=== PATIENT | female | born 1990 | race Caucasian/White ===

== ENCOUNTER 2016-11-22 13:29 | Emergency (ER) | payer OTHER ==
[~2016-11-22] VITALS: Ht 170.2 cm; Wt 70.0 kg
[~2016-11-22 13:29] MED LIST: AMOXICILLIN500 MG PO; AMOXICILLIN875 MG OR; ATIVAN0.5 MG PO; BACTRIM DS1 TAB PO; BENADRY2 EX; BENADRYL 50MG C50 MG PO; CEPHALEXIN500 MG PO; CIPRO XR500 M1 OR; CIPRO500 MG OR; CIPRO500 MG PO; CIPROFLOXACN500 MG PO; CLEOCIN VAG2 % VA; CLEOCIN300 MG OR; DENIES CURRENT MEDS; DIFLUCAN150 MG PO; DILAUDID 2MG2 MG/TAB PO; DILAUDID2 MG PO; DOXYCYCL HYC100 M3 PO; FLAGYL500 MG OR; FLEXERIL PO; FLUCONAZOLE200 MG PO; KEFLEX500 MG PO; LEVAQUIN750 MG PO; LORTAB 10-325 M1 TAB PO; LORTAB 5 OR; LORTAB5 PO; MACROBID100 MG OR; NAPROSYN500 MG OR; NAPROSYN500 MG PO; NO; NO HOME MEDS; NORCO1 TA1 PO; ONDANSETRON4 MG PO; PENICILLN VK500 MG OR; PHENERGAN25 MG/TAB PO; PREVACID30 M2 PO; PYRIDIUM200 MG PO; ROBITUSSIN AC10 ML PO; SEROQUEL50 MG OR; TORADOL PO; TRAMADOL HCL50 MG PO; TRIAMCINOLON0.11 EX; ULTRAM50 M1 OR; ULTRAM50 M1 PO; ULTRAM50 MG OR; XANAX0.5 MG PO; ZITHROMAX250 MG PO
[2016-11-22 14:01] LABS: URINE BILIRUBIN - DIPSTICK NEGATIVE (NEGATIVE); URINE BLOOD DIPSTICK NEGATIVE (NEGATIVE); URINE CLARITY CLEAR; URINE COLOR YELLOW; URINE GLUCOSE - DIPSTICK NEGATIVE (NEGATIVE); URINE KETONE NEGATIVE (NEGATIVE); URINE LEUK ESTERASE NEGATIVE (NEGATIVE); URINE NITRITE - DIPSTICK NEGATIVE (Negative); URINE PROTEIN - DIPSTICK NEGATIVE (NEG-TRACE); URINE SPECIFIC GRAVITY 1.025; URINE UROBILINOGEN - DIPSTICK 0.2 E.U./dL (0.2)
[2016-11-22] MEDS ORDERED: TRAMADOL HYDROC50 MG PO (14:18)
[2016-11-22] MEDS ORDERED: MOTRIN800 MG PO (14:18)
[2016-11-22] MEDS ORDERED: FLEXERIL PO (14:18)
[2016-11-22 14:48] VITALS: BP 126/78
== END 2016-11-22 14:48 | disposition home or self-care (01) | DRG 552 ==
LOC: ED 13:29
PROVIDERS: Emergency Medicine
DX: M54.5 Low back pain (principal); F32.9 Major depressive disorder, single episode, unspecified; F41.9 Anxiety disorder, unspecified; F17.210 Nicotine dependence, cigarettes, uncomplicated

== ENCOUNTER 2016-12-15 18:00 | Emergency (ER) | payer OTHER ==
[~2016-12-15] VITALS: Ht 167.6 cm; Wt 78.6 kg
[~2016-12-15 18:00] MED LIST changes: +MOTRIN800 MG PO; +TRAMADOL HYDROC50 MG PO
[2016-12-15 18:43] LABS: HEMATOCRIT 44.8 % (37.0-47.0); HEMOGLOBIN 15.1 g/dl (12.0-16.0); IMMATURE GRANULOCYTES 0.4 % (0.0-1.0); MEAN CELL VOLUME 94.3 fL CALC (80.0-100.0); MEAN CORPUSCULAR HGB 31.8 pG CALC (26.0-32.0); MEAN CORPUSCULAR HGB CONC 33.7 g/L CALC (32.0-36.0); NEUT# 5.54 thou/uL (2.00-7.15); RED BLOOD COUNT 4.75 mill/uL (4.20-5.60); RED CELL DISTRI WIDTH 12.9 % (11.5-15.5)
[2016-12-15 19:15] LABS: URINE BILIRUBIN - DIPSTICK NEGATIVE (NEGATIVE); URINE BLOOD DIPSTICK NEGATIVE (NEGATIVE); URINE CLARITY CLEAR; URINE COLOR YELLOW; URINE GLUCOSE - DIPSTICK NEGATIVE (NEGATIVE); URINE KETONE NEGATIVE (NEGATIVE); URINE LEUK ESTERASE NEGATIVE (NEGATIVE); URINE NITRITE - DIPSTICK NEGATIVE (Negative); URINE PROTEIN - DIPSTICK NEGATIVE (NEG-TRACE); URINE SPECIFIC GRAVITY 1.025; URINE UROBILINOGEN - DIPSTICK 0.2 E.U./dL (0.2)
[2016-12-15 19:47] LABS: ALBUMIN 4.2 g/dL (3.2-5.0); ALKALINE PHOSPHATASE 72 u/l (38-126); AMYLASE 53 u/l (30-110); ANION GAP 14 (6-22 (CALC)); BILIRUBIN, TOTAL 0.6 mg/dL (0.0-1.4); BUN 9 mg/dL (7-17); BUN/CREATININE RATIO 11 (12-20 (CALC)); CALCIUM 9.5 mg/dL (8.4-10.2); CARBON DIOXIDE 26 mmol/l (22-30); CHLORIDE 105 mmol/l (95-108); CREATININE 0.9 mg/dL (0.5-1.0); GFR > 60 ML/MIN (>=60 (CALC)); GFR FOR AFR.AMER. > 60 ML/MIN (>=60 (CALC)); GLUCOSE 97 mg/dL (65-105); LIPASE 45 u/l (23-300); POTASSIUM 4.3 mmol/l (3.5-5.1); SGOT/AST 32 u/l (14-36); SGPT/ALT 22 u/l (9-52); SODIUM 141 mmol/l (137-146); TOTAL PROTEIN 7.7 g/dL (6.3-8.2)
[2016-12-15 20:34] VITALS: BP 110/76
== END 2016-12-15 20:34 | disposition left against medical advice (07) | DRG 392 ==
LOC: ED 18:00
PROVIDERS: Emergency Medicine
DX: R10.13 Epigastric pain (principal); R11.2 Nausea with vomiting, unspecified; Z91.19 Patient's noncompliance with other medical treatment and regimen
CPT/HCPCS: S0164

== ENCOUNTER 2016-12-21 11:36 | Emergency (ER) | payer OTHER ==
[~2016-12-21] VITALS: Ht 167.6 cm; Wt 78.0 kg
[2016-12-21] MEDS ORDERED: XANAX0.25 MG PO (11:52)
[2016-12-21] MEDS ORDERED: CYCLOBENZAPR10 MG PO (11:53)
[2016-12-21] MEDS ORDERED: LORTAB 5-325 MG1 TAB PO (12:34)
[2016-12-21 12:40] VITALS: BP 126/76
== END 2016-12-21 12:40 | disposition home or self-care (01) | DRG 93 ==
LOC: ED 11:36
DX: G89.29 Other chronic pain (principal); M54.5 Low back pain

== ENCOUNTER 2017-01-10 13:59 | Observation (INO) | payer OTHER ==
[~2017-01-10] VITALS: Ht 167.6 cm; Wt 77.1 kg
[~2017-01-10 13:59] MED LIST changes: +CYCLOBENZAPR10 MG PO; +LORTAB 5-325 MG1 TAB PO; +XANAX0.25 MG PO
--- NOTE | 2017-01-10 14:05 | NUR ---
AMBULATORY TO ER ROOM 14, TO BED
[2017-01-10 14:43] LABS: HEMATOCRIT 46.3 % (37.0-47.0); HEMOGLOBIN 15.6 g/dl (12.0-16.0); IMMATURE GRANULOCYTES 0.4 % (0.0-1.0); MEAN CELL VOLUME 95.1 fL CALC (80.0-100.0); MEAN CORPUSCULAR HGB CONC 33.7 g/L CALC (32.0-36.0); NEUT# 8.08 thou/uL (2.00-7.15); RED BLOOD COUNT 4.87 mill/uL (4.20-5.60); RED CELL DISTRI WIDTH 12.6 % (11.5-15.5)
--- NOTE | 2017-01-10 14:53 | NUR ---
MEDICATED WITH MORPHINE 4MG IV AND ZOFRAN 4MG IV PER MD ORDER. IV FLUIDS INFUSING WITHOUT DIFFICULTY.
[2017-01-10 15:00] LABS: ALBUMIN 4.9 g/dL (3.2-5.0); ALKALINE PHOSPHATASE 76 u/l (38-126); ANION GAP 17 (6-22 (CALC)); BILIRUBIN, TOTAL 0.6 mg/dL (0.0-1.4); BUN 10 mg/dL (7-17); BUN/CREATININE RATIO 10 (12-20 (CALC)); CARBON DIOXIDE 25 mmol/l (22-30); CHLORIDE 105 mmol/l (95-108); GFR > 60 ML/MIN (>=60 (CALC)); GFR FOR AFR.AMER. > 60 ML/MIN (>=60 (CALC)); GLUCOSE 108 mg/dL (65-105); POTASSIUM 4.3 mmol/l (3.5-5.1); SGOT/AST 24 u/l (14-36); SGPT/ALT 26 u/l (9-52); SODIUM 143 mmol/l (137-146); TOTAL PROTEIN 7.9 g/dL (6.3-8.2)
[2017-01-10 15:22] LABS: URINE BILIRUBIN - DIPSTICK NEGATIVE (NEGATIVE); URINE BLOOD DIPSTICK SMALL (NEGATIVE); URINE CLARITY CLEAR; URINE COLOR YELLOW; URINE GLUCOSE - DIPSTICK NEGATIVE (NEGATIVE); URINE KETONE NEGATIVE (NEGATIVE); URINE LEUK ESTERASE SMALL (Negative); URINE NITRITE - DIPSTICK NEGATIVE (Negative); URINE PH 5.5 (4.5-8.0); URINE PROTEIN - DIPSTICK TRACE mg/dL (NEG-TRACE); URINE UROBILINOGEN - DIPSTICK 0.2 E.U./dL (0.2)
[2017-01-10 15:33] LABS: URINE LEUK ESTERASE SMALL (NEGATIVE)
[2017-01-10 15:34] LABS: URINE BACTERIA RARE hpf; URINE RBC 25-50 RBC/hpf (0-5); URINE SQUAMOUS EPITHELIAL CELL FEW EPI/hpf (0-FEW)
--- NOTE | 2017-01-10 16:00 | NUR ---
PT COMPLAINS OF BURNING ON THE INSIDE AND HER EARS. ZOSYN 3.375MG STOPPED AND REPORTED TO .
--- NOTE | 2017-01-10 16:23 | NUR ---
BENDRYL 25MG IV GIVEN PER MD FOR COMPLAINS OF BURNING ALL OVER INTERNALLY.
--- NOTE | 2017-01-10 16:32 | NUR ---
BENDRYL 25MG WAS GIVEN IV PER MD ORDER. PT STATES THE BURNING SENSATION OVER HER BODY HAS EASED UP, NO BURNING IN HER EARS NOTED. PT STATES SHE IS FEELING BETTER.
--- NOTE | 2017-01-10 18:05 | NUR ---
REPORT CALLED TO Tonya ROGERS RN.
--- NOTE | 2017-01-10 18:15 | NUR ---
TRANSPORTED VIA STRECHTER TO ROOM 261. TELE MONITOR INPLACE.
[2017-01-10 18:17] VITALS: BP 122/63
--- NOTE | 2017-01-10 18:17 | NUR ---
PT ARRIVED TO FLOOR AT THIS TIME VIA BRII ACCOMPANIED BY LEVON RN; PT AMB TO SCALE AND BED; PT ORIENTED TO ROOM AND CALL LIGHT SYSTEM; PT C/O FEELING WHOOZY AND HALLUCINATION LIKE FEELING; PT MEDICATED WITH BENEDRYL IN ED; PT TEMP READING 102.2; DR NICHOLS NOTIFIED AND NEW ORDERS RECIEVED; TELE IN PLACE; PT REQUESTING DINNER TRAY AT THIS TIME; PT DENIES ANY PAIN AT THIS TIME; CALL LIGHT WITHIN REACH; WILL CONTINUE TO MONITOR
--- NOTE | 2017-01-10 19:01 | NUR ---
PT MEDICATED WITH TYLENOL PER PRN ORDER; CALL LIGHT WITHIN REACH;
--- NOTE | 2017-01-10 19:50 | NUR ---
PT RESTING IN BED WITH VISITOR AT BEDSIDE;PT RE-ORIENTED TO ROOM AND CALL LIGHT SYSTEM AND VERBALIZES UNDERSTANDING;TELE MONITOR IN PLACE;FAN AT BEDSIDE;ASSESSMENT COMPLETED;IV SITE TO RAC FLUSHED AND PATENT;SKIN INTACT;TEMP OF 99.2 OBTAINED;PT REPORTS LAST BM TO BE ON 01/10;PT COMPLAINS OF SLIGHT LEFT LOWER BACK DISCOMFORT AND STATED THAT THE PAIN MEDICATION GIVEN IN THE ER HAD HELPED;SAFETY PRECAUTIONS REINFORCED;PT DENIES ANY OTHER NEEDS AT THIS TIME;FOOD PROVIDED;PT EDUCATED TO CALL FOR ASSISTANCE IF NEEDED;BED IN LOWEST POSITION WITH CALL LIGHT IN REACH;WILL CONTINUE TO MONITOR
--- NOTE | 2017-01-10 21:00 | NUR ---
NEW ORDERS RECEIEVED FROM MD;WILL CONTINUE TO MONITOR
--- NOTE | 2017-01-10 21:30 | NUR ---
PT REFUSES PAIN MEDICATION AT THIS TIME
--- NOTE | 2017-01-10 23:30 | NUR ---
PT APPEARS TO BE SLEEPING WITH SIGNIGICANT OTHER AT BEDSIDE;TELE MONITOR IN PLACE;NO S/S OF DISTRESS NOTED;RESPIRATIONS EVEN AND UNLABORED ON RA;BED IN LOWEST POSITION WITH CALL LIGHT IN REACH;WILL CONTINUE TO MONITOR
[2017-01-10 23:34] VITALS: BP 90/58
[2017-01-11 03:05] VITALS: BP 101/69
--- NOTE | 2017-01-11 03:41 | NUR ---
PT REQUESTS PRN TYLENOL FOR BACK PAIN RATING 7/10 ON PAIN SCALE;UPON ENTERING THE ROOM PT IS NOTED TO LAYING IN BED WITH SIGNIFICANT OTHER;KEVIN EDUCATED PT THAT A [facility] BED IS NOT IDEAL FOR 2 PEOPLE TO BE SLEEPING IN;PT BECAME SNIPPY AND STATED "HES GONNA STAY IN THE BED,THATS WHAT HELPS ME";PT WALKED INTO BATHROOM AND SIGNIFICANT OTHER STATED "ILL SIT IN THE RECLINER";PT THEN SAID TO SIGNIFICANT "NO YOU WILL STAY IN THE BED WITH ME";PT MEDICATED AT THIS TIME;PT DENIES ANY OTHER NEEDS;WILL CONTINUE TO MONITOR
[2017-01-11 05:53] LABS: HEMATOCRIT 42.6 % (37.0-47.0); HEMOGLOBIN 14.3 g/dl (12.0-16.0); IMMATURE GRANULOCYTES 0.4 % (0.0-1.0); MEAN CELL VOLUME 95.3 fL CALC (80.0-100.0); MEAN CORPUSCULAR HGB CONC 33.6 g/L CALC (32.0-36.0); NEUT# 11.03 thou/uL (2.00-7.15); RED BLOOD COUNT 4.47 mill/uL (4.20-5.60); RED CELL DISTRI WIDTH 12.5 % (11.5-15.5)
[2017-01-11 06:05] LABS: ANION GAP 15 (6-22 (CALC)); BUN 10 mg/dL (7-17); BUN/CREATININE RATIO 11 (12-20 (CALC)); CALCIUM 9.3 mg/dL (8.4-10.2); CARBON DIOXIDE 25 mmol/l (22-30); CHLORIDE 106 mmol/l (95-108); CREATININE 0.9 mg/dL (0.5-1.0); GFR > 60 ML/MIN (>=60 (CALC)); GFR FOR AFR.AMER. > 60 ML/MIN (>=60 (CALC)); GLUCOSE 93 mg/dL (65-105); SODIUM 142 mmol/l (137-146)
--- NOTE | 2017-01-11 08:00 | NUR ---
PT RESTING WITH EYES CLOSED; AROUSED TO VERBAL STIMULI; SIGNIFICANT OTHER IN ROOM; PT C/O LEFT PAIN 12/19; TELE MONITOR IN PLACE; CALL MATOS WITHIN REACH; WILL CONTINUE TO MONITOR.
[2017-01-11 08:18] VITALS: BP 96/66
--- NOTE | 2017-01-11 09:30 | NUR ---
PT STATES SHE WANTS TO LEAVE AMA; PT STATES THAT "THIS HOSP[facility] IS NOT EQUIP TO TAKE CARE OF ME. I AM GOING TO [facility] WHERE THEY KNOW ME." Dr. TRAN AND GUILLERMO NICHOLAS IN TO DISCUSS CARE WITH AND RISKS OF LEAVING AMA; PT INSISTS THAT SHE NEEDS TO GO TO [facility]
--- NOTE | 2017-01-11 09:58 | NUR ---
Patient decides to leave AMA. Multiple attempts made to ecourage patient to remain here for continued treatment. Explained to patient all risks of leaving against medical advice including . Pt verbalized understanding of all risks. Pt also encouraged to return to [facility] at any time, especially if symptoms continue or become worse. Pt verbalized understanding.
== END 2017-01-11 10:00 | disposition left against medical advice (07) | DRG 690 ==
LOC: ED 13:59 → ED-I 16:35 → ED 17:20 → MS2 17:21
PROVIDERS: Emergency Medicine; ADMIT Internal Medicine; ATTEND Internal Medicine
DX: N10 Acute pyelonephritis (principal); F32.9 Major depressive disorder, single episode, unspecified; Q63.9 Congenital malformation of kidney, unspecified; F17.210 Nicotine dependence, cigarettes, uncomplicated; F41.9 Anxiety disorder, unspecified
CPT/HCPCS: G0378

== ENCOUNTER 2017-02-17 18:06 | Emergency (ER) | payer OTHER ==
[~2017-02-17] VITALS: Ht 167.6 cm; Wt 68.2 kg
[2017-02-17] MEDS ORDERED: XANAX0.25 MG PO (19:49)
[2017-02-17 20:00] VITALS: BP 116/78
== END 2017-02-17 20:00 | disposition home or self-care (01) | DRG 880 ==
LOC: ED 18:06
DX: F41.9 Anxiety disorder, unspecified (principal)

== ENCOUNTER 2017-03-08 17:37 | Emergency (ER) | payer OTHER ==
[~2017-03-08] VITALS: Ht 167.6 cm; Wt 76.0 kg
[2017-03-08] MEDS ORDERED: LORTAB 10-325 M1 TAB PO (18:59)
[2017-03-08 19:00] VITALS: BP 114/76
== END 2017-03-08 19:00 | disposition home or self-care (01) | DRG 93 ==
LOC: ED 17:37
DX: G89.29 Other chronic pain (principal); M54.5 Low back pain

== ENCOUNTER 2017-04-07 10:48 | Emergency (ER) | payer OTHER ==
[~2017-04-07] VITALS: Ht 167.6 cm; Wt 70.0 kg
[2017-04-07] MEDS ORDERED: BACTRIM DS1 TAB PO (11:26)
[2017-04-07 11:30] VITALS: BP 122/61
== END 2017-04-07 11:30 | disposition home or self-care (01) | DRG 603 ==
LOC: ED 10:48
DX: L08.9 Local infection of the skin and subcutaneous tissue, unspecified (principal); F32.9 Major depressive disorder, single episode, unspecified; F41.0 Panic disorder [episodic paroxysmal anxiety]; F17.210 Nicotine dependence, cigarettes, uncomplicated

== ENCOUNTER 2017-07-15 16:41 | Emergency (ER) | payer OTHER ==
[~2017-07-15] VITALS: Ht 167.6 cm; Wt 79.0 kg
[2017-07-15 16:48] VITALS: BP 130/70
[2017-07-15 17:15] LABS: URINE BILIRUBIN - DIPSTICK NEGATIVE (NEGATIVE); URINE BLOOD DIPSTICK NEGATIVE (NEGATIVE); URINE CLARITY CLEAR; URINE COLOR YELLOW; URINE GLUCOSE - DIPSTICK NEGATIVE (NEGATIVE); URINE KETONE NEGATIVE (NEGATIVE); URINE LEUK ESTERASE NEGATIVE (NEGATIVE); URINE NITRITE - DIPSTICK NEGATIVE (Negative); URINE PROTEIN - DIPSTICK NEGATIVE (NEG-TRACE); URINE UROBILINOGEN - DIPSTICK 0.2 E.U./dL (0.2)
[2017-07-15] MEDS ORDERED: KEFLEX500 MG PO (17:29)
[2017-07-15] MEDS ORDERED: XANAX0.5 MG PO (17:29)
[2017-07-15] MEDS ORDERED: TRAMADOL HYDROC50 MG PO (17:35)
== END 2017-07-15 17:38 | disposition home or self-care (01) | DRG 153 ==
LOC: ED 16:41
PROVIDERS: Emergency Medicine
DX: J02.9 Acute pharyngitis, unspecified (principal); F17.210 Nicotine dependence, cigarettes, uncomplicated; F41.9 Anxiety disorder, unspecified; R30.0 Dysuria

== ENCOUNTER 2017-07-20 18:37 | Emergency (ER) | payer OTHER ==
[~2017-07-20] VITALS: Ht 167.6 cm; Wt 73.0 kg
[2017-07-20 20:04] LABS: HEMATOCRIT 44.8 % (37.0-47.0); IMMATURE GRANULOCYTES 0.3 % (0.0-1.0); MEAN CELL VOLUME 95.3 fL CALC (80.0-100.0); MEAN CORPUSCULAR HGB 31.9 pG CALC (26.0-32.0); MEAN CORPUSCULAR HGB CONC 33.5 g/L CALC (32.0-36.0); NEUT# 4.76 thou/uL (2.00-7.15); RED BLOOD COUNT 4.7 mill/uL (4.20-5.60); RED CELL DISTRI WIDTH 12.6 % (11.5-15.5)
[2017-07-20 20:07] LABS: URINE BILIRUBIN - DIPSTICK NEGATIVE (NEGATIVE); URINE BLOOD DIPSTICK SMALL (NEGATIVE); URINE COLOR YELLOW; URINE GLUCOSE - DIPSTICK NEGATIVE (NEGATIVE); URINE KETONE NEGATIVE (NEGATIVE); URINE LEUK ESTERASE NEGATIVE (NEGATIVE); URINE NITRITE - DIPSTICK NEGATIVE (Negative); URINE PH 7.5 (4.5-8.0); URINE PROTEIN - DIPSTICK TRACE mg/dL (NEG-TRACE); URINE UROBILINOGEN - DIPSTICK 0.2 E.U./dL (0.2)
[2017-07-20 20:24] LABS: URINE CLARITY CLEAR; URINE SQUAMOUS EPITHELIAL CELL FEW EPI/hpf (0-FEW)
[2017-07-20 20:27] LABS: ALBUMIN 4.5 g/dL (3.2-5.0); ALKALINE PHOSPHATASE 66 u/l (38-126); AMYLASE 34 u/l (30-110); ANION GAP 15 (6-22 (CALC)); BILIRUBIN, TOTAL 0.3 mg/dL (0.0-1.4); BUN 10 mg/dL (7-17); BUN/CREATININE RATIO 12 (12-20 (CALC)); CALCIUM 9.5 mg/dL (8.4-10.2); CARBON DIOXIDE 28 mmol/l (22-30); CHLORIDE 105 mmol/l (95-108); CREATININE 0.9 mg/dL (0.5-1.0); GFR > 60 ML/MIN (>=60 (CALC)); GFR FOR AFR.AMER. > 60 ML/MIN (>=60 (CALC)); GLUCOSE 115 mg/dL (65-105); LIPASE 70 u/l (23-300); POTASSIUM 4.3 mmol/l (3.5-5.1); SGOT/AST 24 u/l (14-36); SGPT/ALT 27 u/l (9-52); SODIUM 143 mmol/l (137-146); TOTAL PROTEIN 7.2 g/dL (6.3-8.2)
[2017-07-20] MEDS ORDERED: ZOFRAN ODT4 MG PO (20:47)
[2017-07-20 21:14] VITALS: BP 110/68
== END 2017-07-20 21:14 | disposition home or self-care (01) | DRG 392 ==
LOC: ED 18:37
PROVIDERS: Emergency Medicine
DX: R11.2 Nausea with vomiting, unspecified (principal); F32.9 Major depressive disorder, single episode, unspecified; R10.9 Unspecified abdominal pain; F17.210 Nicotine dependence, cigarettes, uncomplicated; F41.9 Anxiety disorder, unspecified

== ENCOUNTER 2017-07-29 08:03 | Emergency (ER) | payer OTHER ==
[~2017-07-29] VITALS: Ht 167.6 cm; Wt 74.0 kg
[~2017-07-29 08:03] MED LIST changes: +ZOFRAN ODT4 MG PO
[2017-07-29] MEDS ORDERED: LEVOTHYROXIN50 MCG PO (08:41)
[2017-07-29] MEDS ORDERED: PEPCID20 MG PO (08:41)
[2017-07-29 09:00] LABS: HEMATOCRIT 43.6 % (37.0-47.0); HEMOGLOBIN 14.7 g/dl (12.0-16.0); IMMATURE GRANULOCYTES 0.4 % (0.0-1.0); MEAN CELL VOLUME 94.2 fL CALC (80.0-100.0); MEAN CORPUSCULAR HGB 31.7 pG CALC (26.0-32.0); MEAN CORPUSCULAR HGB CONC 33.7 g/L CALC (32.0-36.0); NEUT# 4.76 thou/uL (2.00-7.15); RED BLOOD COUNT 4.63 mill/uL (4.20-5.60); RED CELL DISTRI WIDTH 12.7 % (11.5-15.5)
[2017-07-29 09:04] LABS: URINE BILIRUBIN - DIPSTICK NEGATIVE (NEGATIVE); URINE BLOOD DIPSTICK NEGATIVE (NEGATIVE); URINE COLOR YELLOW; URINE GLUCOSE - DIPSTICK NEGATIVE (NEGATIVE); URINE KETONE TRACE mg/dL (NEGATIVE); URINE LEUK ESTERASE NEGATIVE (NEGATIVE); URINE NITRITE - DIPSTICK NEGATIVE (Negative); URINE PROTEIN - DIPSTICK NEGATIVE (NEG-TRACE); URINE UROBILINOGEN - DIPSTICK 0.2 E.U./dL (0.2)
[2017-07-29 09:07] LABS: URINE CLARITY CLEAR
[2017-07-29 09:08] LABS: COCAINE NEGATIVE (NEGATIVE); TETRAHYDROCANNABIONOL NEGATIVE (NEGATIVE)
[2017-07-29 09:09] LABS: BARBITURATES NEGATIVE (NEGATIVE); METHADONE NEGATIVE (NEGATIVE); OXCYCODONE NEGATIVE (NEGATIVE); TRICYLIC ANTIDEPRESSANTS NEGATIVE (NEGATIVE)
[2017-07-29 09:15] LABS: ALBUMIN 4.4 g/dL (3.2-5.0); ALKALINE PHOSPHATASE 84 u/l (38-126); ANION GAP 16 (6-22 (CALC)); BILIRUBIN, TOTAL 0.4 mg/dL (0.0-1.4); BUN 16 mg/dL (7-17); BUN/CREATININE RATIO 18 (12-20 (CALC)); CALCIUM 9.4 mg/dL (8.4-10.2); CARBON DIOXIDE 25 mmol/l (22-30); CHLORIDE 107 mmol/l (95-108); CREATININE 0.9 mg/dL (0.5-1.0); GFR > 60 ML/MIN (>=60 (CALC)); GFR FOR AFR.AMER. > 60 ML/MIN (>=60 (CALC)); GLUCOSE 102 mg/dL (65-105); SGOT/AST 28 u/l (14-36); SGPT/ALT 44 u/l (9-52); SODIUM 144 mmol/l (137-146)
[2017-07-29 10:42] VITALS: BP 109/63
== END 2017-07-29 10:50 | disposition home or self-care (01) | DRG 392 ==
LOC: ED 08:03
PROVIDERS: Emergency Medicine
DX: R10.9 Unspecified abdominal pain (principal); F17.210 Nicotine dependence, cigarettes, uncomplicated; F41.9 Anxiety disorder, unspecified; F32.9 Major depressive disorder, single episode, unspecified; Z87.440 Personal history of urinary (tract) infections

== ENCOUNTER 2017-08-17 00:08 | Emergency (ER) | payer OTHER ==
[~2017-08-17] VITALS: Ht 167.6 cm; Wt 80.0 kg
[~2017-08-17 00:08] MED LIST changes: +LEVOTHYROXIN50 MCG PO; +PEPCID20 MG PO
[2017-08-17] MEDS ORDERED: ZPAK PO (01:09)
[2017-08-17] MEDS ORDERED: ROBITUSSIN AC10 ML PO (01:09)
[2017-08-17 01:32] VITALS: BP 128/79
== END 2017-08-17 02:00 | disposition home or self-care (01) | DRG 153 ==
LOC: ED 00:08
DX: J06.9 Acute upper respiratory infection, unspecified (principal); F17.210 Nicotine dependence, cigarettes, uncomplicated; R05 Cough; R52 Pain, unspecified

== ENCOUNTER 2017-08-30 21:44 | Emergency (ER) | payer OTHER ==
[~2017-08-30] VITALS: Ht 167.6 cm; Wt 74.0 kg
[~2017-08-30 21:44] MED LIST changes: +ZPAK PO
[2017-08-30] MEDS ORDERED: NAPROSYN500 MG PO (22:24)
[2017-08-30 22:44] VITALS: BP 119/74
== END 2017-08-30 22:44 | disposition home or self-care (01) | DRG 605 ==
LOC: ED 21:44
DX: S60.221A Contusion of right hand, initial encounter (principal); M79.641 Pain in right hand; W22.8XXA Striking against or struck by other objects, initial encounter; Y92.009 Unspecified place in unspecified non-institutional (private) residence as the place of occurrence of the external cause; R22.31 Localized swelling, mass and lump, right upper limb

== ENCOUNTER 2017-10-30 10:12 | Emergency (ER) | payer OTHER ==
[~2017-10-30] VITALS: Ht 167.6 cm; Wt 74.0 kg
[2017-10-30] MEDS ORDERED: GABAPENTIN100 MG PO (11:18)
[2017-10-30] MEDS ORDERED: HYDROCO/APAP1 T10 PO (11:18)
[2017-10-30 11:23] LABS: HEMATOCRIT 44.7 % (37.0-47.0); HEMOGLOBIN 15.1 g/dl (12.0-16.0); IMMATURE GRANULOCYTES 0.7 % (0.0-1.0); MEAN CELL VOLUME 93.7 fL CALC (80.0-100.0); MEAN CORPUSCULAR HGB 31.7 pG CALC (26.0-32.0); MEAN CORPUSCULAR HGB CONC 33.8 g/L CALC (32.0-36.0); NEUT# 3.51 thou/uL (2.00-7.15); RED BLOOD COUNT 4.77 mill/uL (4.20-5.60)
[2017-10-30 11:36] LABS: ALBUMIN 4.3 g/dL (3.2-5.0); ALKALINE PHOSPHATASE 75 u/l (38-126); ANION GAP 17 (6-22 (CALC)); BILIRUBIN, TOTAL 0.2 mg/dL (0.0-1.4); BUN 9 mg/dL (7-17); BUN/CREATININE RATIO 10 (12-20 (CALC)); CARBON DIOXIDE 25 mmol/l (22-30); CHLORIDE 106 mmol/l (95-108); CREATININE 0.9 mg/dL (0.5-1.0); GFR > 60 ML/MIN (>=60 (CALC)); GFR FOR AFR.AMER. > 60 ML/MIN (>=60 (CALC)); POTASSIUM 4.4 mmol/l (3.5-5.1); SGOT/AST 28 u/l (14-36); SGPT/ALT 36 u/l (9-52); SODIUM 144 mmol/l (137-146)
[2017-10-30 12:06] VITALS: BP 122/69
== END 2017-10-30 12:32 | disposition home or self-care (01) | DRG 880 ==
LOC: ED 10:12
PROVIDERS: Family Medicine
DX: F41.9 Anxiety disorder, unspecified (principal); F17.200 Nicotine dependence, unspecified, uncomplicated; R06.02 Shortness of breath; R42 Dizziness and giddiness; Z86.79 Personal history of other diseases of the circulatory system

== ENCOUNTER 2017-12-07 17:41 | Emergency (ER) | payer OTHER ==
[~2017-12-07] VITALS: Ht 167.6 cm; Wt 80.0 kg
[~2017-12-07 17:41] MED LIST changes: +GABAPENTIN100 MG PO; +HYDROCO/APAP1 T10 PO
[2017-12-07 18:32] LABS: URINE BILIRUBIN - DIPSTICK NEGATIVE (NEGATIVE); URINE BLOOD DIPSTICK NEGATIVE (NEGATIVE); URINE CLARITY CLEAR; URINE COLOR YELLOW; URINE GLUCOSE - DIPSTICK NEGATIVE (NEGATIVE); URINE KETONE NEGATIVE (NEGATIVE); URINE LEUK ESTERASE NEGATIVE (NEGATIVE); URINE NITRITE - DIPSTICK NEGATIVE (Negative); URINE PROTEIN - DIPSTICK TRACE mg/dL (NEG-TRACE); URINE UROBILINOGEN - DIPSTICK 0.2 E.U./dL (0.2)
[2017-12-07 18:34] LABS: HEMATOCRIT 47.9 % (37.0-47.0); HEMOGLOBIN 16.3 g/dl (12.0-16.0); IMMATURE GRANULOCYTES 0.7 % (0.0-1.0); MEAN CELL VOLUME 93.4 fL CALC (80.0-100.0); MEAN CORPUSCULAR HGB 31.8 pG CALC (26.0-32.0); NEUT# 5.58 thou/uL (2.00-7.15); RED BLOOD COUNT 5.13 mill/uL (4.20-5.60); RED CELL DISTRI WIDTH 12.5 % (11.5-15.5)
[2017-12-07 19:09] LABS: ALBUMIN 4.9 g/dL (3.2-5.0); ALKALINE PHOSPHATASE 81 u/l (38-126); ANION GAP 21 (6-22 (CALC)); BILIRUBIN, TOTAL 0.6 mg/dL (0.0-1.4); BUN 14 mg/dL (7-17); BUN/CREATININE RATIO 15 (12-20 (CALC)); CARBON DIOXIDE 21 mmol/l (22-30); CHLORIDE 107 mmol/l (95-108); CREATININE 0.9 mg/dL (0.5-1.0); GFR > 60 ML/MIN (>=60 (CALC)); GFR FOR AFR.AMER. > 60 ML/MIN (>=60 (CALC)); POTASSIUM 4.4 mmol/l (3.5-5.1); SGOT/AST 36 u/l (14-36); SGPT/ALT 40 u/l (9-52); SODIUM 145 mmol/l (137-146); TOTAL PROTEIN 8.3 g/dL (6.3-8.2)
[2017-12-07] MEDS ORDERED: ULTRAM50 M1 PO (20:23)
[2017-12-07 20:45] VITALS: BP 116/72
== END 2017-12-07 20:45 | disposition home or self-care (01) | DRG 392 ==
LOC: ED 17:41
PROVIDERS: Family Medicine
DX: R10.9 Unspecified abdominal pain (principal); F17.210 Nicotine dependence, cigarettes, uncomplicated; I45.10 Unspecified right bundle-branch block; F99 Mental disorder, not otherwise specified
CPT/HCPCS: Q9967

== ENCOUNTER 2018-01-03 18:03 | Emergency (ER) | payer OTHER ==
[~2018-01-03] VITALS: Ht 167.6 cm; Wt 67.0 kg
[2018-01-03 18:30] VITALS: BP 124/78
== END 2018-01-03 18:45 | disposition home or self-care (01) | DRG 880 ==
LOC: ED 18:03
DX: F41.9 Anxiety disorder, unspecified (principal); F17.210 Nicotine dependence, cigarettes, uncomplicated

== ENCOUNTER 2018-01-08 19:35 | Emergency (ER) | payer OTHER ==
[~2018-01-08] VITALS: Ht 167.6 cm; Wt 78.6 kg
[2018-01-08] MEDS ORDERED: FLEXERIL5 M1 PO (21:38)
[2018-01-08] MEDS ORDERED: TRAMADOL HCL50 MG PO (21:38)
[2018-01-08 21:43] VITALS: BP 123/76
== END 2018-01-08 22:00 | disposition home or self-care (01) | DRG 563 ==
LOC: ED 19:35
DX: S39.012A Strain of muscle, fascia and tendon of lower back, initial encounter (principal); W01.190A Fall on same level from slipping, tripping and stumbling with subsequent striking against furniture, initial encounter; Y93.E9 Activity, other interior property and clothing maintenance; Y92.009 Unspecified place in unspecified non-institutional (private) residence as the place of occurrence of the external cause

== ENCOUNTER 2018-01-29 20:45 | Emergency (ER) | payer OTHER ==
[~2018-01-29] VITALS: Ht 167.6 cm; Wt 77.0 kg
[~2018-01-29 20:45] MED LIST changes: +FLEXERIL5 M1 PO
[2018-01-29 21:25] VITALS: BP 129/85
== END 2018-01-29 21:30 | disposition home or self-care (01) | DRG 918 ==
LOC: ED 20:45
DX: T63.481A Toxic effect of venom of other arthropod, accidental (unintentional), initial encounter (principal); R22.32 Localized swelling, mass and lump, left upper limb; Y92.007 Garden or yard of unspecified non-institutional (private) residence as the place of occurrence of the external cause

== ENCOUNTER 2018-01-31 13:44 | Emergency (ER) | payer OTHER ==
[~2018-01-31] VITALS: Ht 167.6 cm; Wt 78.0 kg
[2018-01-31] MEDS ORDERED: CLINDAMYCIN300 M1 PO (14:03)
[2018-01-31 14:10] VITALS: BP 128/76
== END 2018-01-31 14:10 | disposition home or self-care (01) | DRG 159 ==
LOC: ED 13:44
DX: K08.89 Other specified disorders of teeth and supporting structures (principal); F41.9 Anxiety disorder, unspecified; F17.210 Nicotine dependence, cigarettes, uncomplicated

== ENCOUNTER 2018-02-02 19:00 | Emergency (ER) | payer OTHER ==
[~2018-02-02] VITALS: Ht 167.6 cm; Wt 77.6 kg
[~2018-02-02 19:00] MED LIST changes: +CLINDAMYCIN300 M1 PO
[2018-02-02 19:14] VITALS: BP 122/82
[2018-02-02 20:03] LABS: URINE BILIRUBIN - DIPSTICK NEGATIVE (NEGATIVE); URINE BLOOD DIPSTICK NEGATIVE (NEGATIVE); URINE COLOR YELLOW; URINE GLUCOSE - DIPSTICK NEGATIVE (NEGATIVE); URINE KETONE NEGATIVE (NEGATIVE); URINE LEUK ESTERASE NEGATIVE (NEGATIVE); URINE NITRITE - DIPSTICK NEGATIVE (Negative); URINE PROTEIN - DIPSTICK NEGATIVE (NEG-TRACE); URINE SPECIFIC GRAVITY 1.015; URINE UROBILINOGEN - DIPSTICK 0.2 E.U./dL (0.2)
[2018-02-02 20:08] LABS: URINE CLARITY CLEAR
== END 2018-02-02 20:29 | disposition home or self-care (01) | DRG 690 ==
LOC: ED 19:00
PROVIDERS: Family Medicine
DX: N34.2 Other urethritis (principal); F41.9 Anxiety disorder, unspecified; F17.210 Nicotine dependence, cigarettes, uncomplicated; R10.9 Unspecified abdominal pain; R30.0 Dysuria; R39.15 Urgency of urination

== ENCOUNTER 2018-02-15 21:41 | Emergency (ER) | payer OTHER ==
[~2018-02-15] VITALS: Ht 167.6 cm; Wt 76.0 kg
[2018-02-15 22:38] LABS: HEMATOCRIT 45.6 % (37.0-47.0); HEMOGLOBIN 15.4 g/dl (12.0-16.0); IMMATURE GRANULOCYTES 0.1 % (0.0-1.0); MEAN CELL VOLUME 94.4 fL CALC (80.0-100.0); MEAN CORPUSCULAR HGB 31.9 pG CALC (26.0-32.0); MEAN CORPUSCULAR HGB CONC 33.8 g/L CALC (32.0-36.0); NEUT# 3.9 thou/uL (2.00-7.15); RED BLOOD COUNT 4.83 mill/uL (4.20-5.60); RED CELL DISTRI WIDTH 12.2 % (11.5-15.5)
[2018-02-15 22:39] LABS: URINE BILIRUBIN - DIPSTICK NEGATIVE (NEGATIVE); URINE BLOOD DIPSTICK NEGATIVE (NEGATIVE); URINE CLARITY SL CLOUDY; URINE COLOR YELLOW; URINE GLUCOSE - DIPSTICK NEGATIVE (NEGATIVE); URINE KETONE NEGATIVE (NEGATIVE); URINE LEUK ESTERASE NEGATIVE (NEGATIVE); URINE NITRITE - DIPSTICK NEGATIVE (Negative); URINE PH 6.5 (4.5-8.0); URINE PROTEIN - DIPSTICK NEGATIVE (NEG-TRACE); URINE UROBILINOGEN - DIPSTICK 0.2 E.U./dL (0.2)
[2018-02-15 22:56] LABS: ALBUMIN 4.7 g/dL (3.2-5.0); ALKALINE PHOSPHATASE 74 u/l (38-126); ANION GAP 14 (6-22 (CALC)); BILIRUBIN, TOTAL 0.3 mg/dL (0.0-1.4); BUN 10 mg/dL (7-17); BUN/CREATININE RATIO 11 (12-20 (CALC)); CHLORIDE 104 mmol/l (95-108); CREATININE 0.9 mg/dL (0.5-1.0); GFR > 60 ML/MIN (>=60 (CALC)); GFR FOR AFR.AMER. > 60 ML/MIN (>=60 (CALC)); POTASSIUM 4.2 mmol/l (3.5-5.1); SGOT/AST 18 u/l (14-36); SGPT/ALT 29 u/l (9-52); SODIUM 142 mmol/l (137-146); TOTAL PROTEIN 7.6 g/dL (6.3-8.2)
[2018-02-15 22:57] LABS: CARBON DIOXIDE 28 mmol/l (22-30)
[2018-02-15] MEDS ORDERED: LOTRISONE CREAM15 GM EX (23:33)
[2018-02-15] MEDS ORDERED: DITROPAN PO (23:33)
[2018-02-16 00:05] VITALS: BP 128/68
== END 2018-02-16 00:05 | disposition home or self-care (01) ==
LOC: ED 21:41
PROVIDERS: Family Medicine
DX: R30.0 Dysuria (principal); R35.0 Frequency of micturition; F41.9 Anxiety disorder, unspecified; F17.210 Nicotine dependence, cigarettes, uncomplicated

== ENCOUNTER 2018-02-20 21:03 | Emergency (ER) | payer OTHER ==
[~2018-02-20] VITALS: Ht 167.6 cm; Wt 75.4 kg
[~2018-02-20 21:03] MED LIST changes: +DITROPAN PO; +LOTRISONE CREAM15 GM EX
[2018-02-21 00:15] VITALS: BP 103/62
== END 2018-02-21 00:26 | disposition home or self-care (01) ==
LOC: ED 21:03
DX: F41.9 Anxiety disorder, unspecified (principal); T42.4X1A Poisoning by benzodiazepines, accidental (unintentional), initial encounter; Y92.009 Unspecified place in unspecified non-institutional (private) residence as the place of occurrence of the external cause

== ENCOUNTER 2018-03-03 17:11 | Emergency (ER) | payer OTHER ==
[~2018-03-03] VITALS: Ht 167.6 cm; Wt 76.0 kg
[2018-03-03] MEDS ORDERED: PERCOCET1 TA2 PO (17:27)
[2018-03-03 17:47] LABS: URINE BILIRUBIN - DIPSTICK NEGATIVE (NEGATIVE); URINE BLOOD DIPSTICK LARGE (NEGATIVE); URINE COLOR YELLOW; URINE GLUCOSE - DIPSTICK NEGATIVE (NEGATIVE); URINE KETONE NEGATIVE (NEGATIVE); URINE NITRITE - DIPSTICK NEGATIVE (Negative); URINE PROTEIN - DIPSTICK 30 mg/dL (NEG-TRACE); URINE SPECIFIC GRAVITY >=1.030; URINE UROBILINOGEN - DIPSTICK 0.2 E.U./dL (0.2)
[2018-03-03 17:50] LABS: URINE CLARITY SL CLOUDY; URINE LEUK ESTERASE SMALL (NEGATIVE); URINE SQUAMOUS EPITHELIAL CELL FEW EPI/hpf (0-FEW); URINE WBC 20-50 WBC/hpf (0-5)
[2018-03-03] MEDS ORDERED: KEFLEX500 M1 PO (18:01)
[2018-03-03] MEDS ORDERED: PYRIDIUM200 MG PO (18:01)
[2018-03-03 18:02] VITALS: BP 122/81
== END 2018-03-03 18:07 | disposition home or self-care (01) ==
LOC: ED 17:11
PROVIDERS: Emergency Medicine
DX: N39.0 Urinary tract infection, site not specified (principal); F17.210 Nicotine dependence, cigarettes, uncomplicated; R30.0 Dysuria

== ENCOUNTER 2018-03-07 00:37 | Emergency (ER) | payer OTHER ==
[~2018-03-07] VITALS: Ht 167.6 cm; Wt 75.6 kg
[~2018-03-07 00:37] MED LIST changes: +KEFLEX500 M1 PO; +PERCOCET1 TA2 PO
[2018-03-07] MEDS ORDERED: BACTRIM DS1 TAB PO (00:43)
[2018-03-07] MEDS ORDERED: PYRIDIUM200 MG PO (01:07)
[2018-03-07 01:29] VITALS: BP 128/49
[2018-03-10] MEDS ORDERED: CIPROFLOXACN500 MG PO (04:23)
[2018-03-10] MEDS ORDERED: TORADOL PO (04:37)
== END 2018-03-07 01:29 | disposition home or self-care (01) ==
LOC: ED 00:37
DX: N39.0 Urinary tract infection, site not specified (principal); R30.0 Dysuria; F41.9 Anxiety disorder, unspecified; F17.210 Nicotine dependence, cigarettes, uncomplicated; I45.10 Unspecified right bundle-branch block

== ENCOUNTER 2018-03-15 17:32 | Emergency (ER) | payer OTHER ==
[~2018-03-15] VITALS: Ht 167.6 cm; Wt 76.4 kg
[2018-03-15] MEDS ORDERED: PERCOCET 10/31 COMBO PO (17:41)
[2018-03-15] MEDS ORDERED: DOXYCYCLINE100 MG PO (17:47)
[2018-03-15 17:56] VITALS: BP 139/89
[2018-03-15 18:11] LABS: URINE BILIRUBIN - DIPSTICK NEGATIVE (NEGATIVE); URINE BLOOD DIPSTICK TRACE-INTACT (NEGATIVE); URINE CLARITY CLEAR; URINE COLOR YELLOW; URINE GLUCOSE - DIPSTICK NEGATIVE (NEGATIVE); URINE KETONE NEGATIVE (NEGATIVE); URINE LEUK ESTERASE NEGATIVE (NEGATIVE); URINE NITRITE - DIPSTICK NEGATIVE (Negative); URINE PH 5.5 (4.5-8.0); URINE PROTEIN - DIPSTICK NEGATIVE (NEG-TRACE); URINE UROBILINOGEN - DIPSTICK 0.2 E.U./dL (0.2)
== END 2018-03-15 17:55 | disposition home or self-care (01) ==
LOC: ED 17:32
PROVIDERS: Family Medicine
DX: R59.1 Generalized enlarged lymph nodes (principal); H92.02 Otalgia, left ear; F17.210 Nicotine dependence, cigarettes, uncomplicated

== ENCOUNTER 2018-04-20 21:12 | Emergency (ER) | payer OTHER ==
[~2018-04-20] VITALS: Ht 167.6 cm; Wt 75.0 kg
[~2018-04-20 21:12] MED LIST changes: +DOXYCYCLINE100 MG PO; +PERCOCET 10/31 COMBO PO
[2018-04-20] MEDS ORDERED: ORPHENADRINE100 MG PO (21:48)
[2018-04-20] MEDS ORDERED: IBUPROFEN600 MG PO (21:48)
[2018-04-20 21:57] VITALS: BP 127/84
== END 2018-04-20 22:00 | disposition home or self-care (01) ==
LOC: ED 21:12
DX: S39.012A Strain of muscle, fascia and tendon of lower back, initial encounter (principal); X58.XXXA Exposure to other specified factors, initial encounter; F17.210 Nicotine dependence, cigarettes, uncomplicated; F41.9 Anxiety disorder, unspecified

== ENCOUNTER 2018-04-21 00:19 | Emergency (ER) | payer OTHER ==
[~2018-04-21] VITALS: Ht 167.6 cm; Wt 75.0 kg
[~2018-04-21 00:19] MED LIST changes: +IBUPROFEN600 MG PO; +ORPHENADRINE100 MG PO
[2018-04-21 00:56] LABS: URINE BLOOD DIPSTICK NEGATIVE (NEGATIVE); URINE COLOR YELLOW; URINE GLUCOSE - DIPSTICK NEGATIVE (NEGATIVE); URINE KETONE NEGATIVE (NEGATIVE); URINE LEUK ESTERASE NEGATIVE (Negative); URINE NITRITE - DIPSTICK NEGATIVE (Negative); URINE PROTEIN - DIPSTICK 30 mg/dL (NEG-TRACE); URINE SPECIFIC GRAVITY >=1.030; URINE UROBILINOGEN - DIPSTICK 0.2 E.U./dL (0.2)
[2018-04-21 01:00] LABS: URINE BILIRUBIN - DIPSTICK SMALL (NEGATIVE); URINE CLARITY CLOUDY
[2018-04-21 01:03] LABS: URINE BACTERIA FEW hpf; URINE MUCUS MANY hpf (NONE-FEW); URINE RBC 0-2 RBC/hpf (0-5); URINE SQUAMOUS EPITHELIAL CELL MANY EPI/hpf (0-FEW)
[2018-04-21 02:44] VITALS: BP 96/50
== END 2018-04-21 02:44 | disposition home or self-care (01) ==
LOC: ED 00:19
PROVIDERS: Emergency Medicine
DX: M54.5 Low back pain (principal); F41.9 Anxiety disorder, unspecified; F17.210 Nicotine dependence, cigarettes, uncomplicated
CPT/HCPCS: J2060

== ENCOUNTER 2018-05-21 22:03 | Emergency (ER) | payer OTHER ==
[~2018-05-21] VITALS: Ht 167.6 cm; Wt 73.2 kg
[2018-05-21] MEDS ORDERED: PERCOCET 5/325M1 TAB PO (22:12)
[2018-05-21 22:55] LABS: HEMOGLOBIN 15.1 g/dl (12.0-16.0); IMMATURE GRANULOCYTES 0.6 % (0.0-5.0); MEAN CELL VOLUME 94.7 fL CALC (80.0-100.0); MEAN CORPUSCULAR HGB 31.8 pG CALC (26.0-32.0); MEAN CORPUSCULAR HGB CONC 33.6 g/L CALC (32.0-36.0); NEUT# 6.89 thou/uL (2.00-7.15); RED BLOOD COUNT 4.75 mill/uL (4.20-5.60); RED CELL DISTRI WIDTH 12.4 % (11.5-15.5)
[2018-05-21 22:56] LABS: URINE BILIRUBIN - DIPSTICK NEGATIVE (NEGATIVE); URINE BLOOD DIPSTICK NEGATIVE (NEGATIVE); URINE COLOR YELLOW; URINE GLUCOSE - DIPSTICK NEGATIVE (NEGATIVE); URINE KETONE NEGATIVE (NEGATIVE); URINE LEUK ESTERASE NEGATIVE (NEGATIVE); URINE NITRITE - DIPSTICK NEGATIVE (Negative); URINE PROTEIN - DIPSTICK NEGATIVE (NEG-TRACE); URINE SPECIFIC GRAVITY 1.025; URINE UROBILINOGEN - DIPSTICK 0.2 E.U./dL (0.2)
[2018-05-21 23:00] LABS: ALBUMIN 4.5 g/dL (3.2-5.0); ALKALINE PHOSPHATASE 79 u/l (38-126); ANION GAP 14 (6-22 (CALC)); BILIRUBIN, TOTAL 0.2 mg/dL (0.0-1.4); BUN 14 mg/dL (7-17); BUN/CREATININE RATIO 15 (12-20 (CALC)); CARBON DIOXIDE 28 mmol/l (22-30); CHLORIDE 105 mmol/l (95-108); CREATININE 0.9 mg/dL (0.5-1.0); GFR > 60 ML/MIN (>=60 (CALC)); GFR FOR AFR.AMER. > 60 ML/MIN (>=60 (CALC)); SGOT/AST 18 u/l (14-36); SODIUM 142 mmol/l (137-146); TOTAL PROTEIN 7.3 g/dL (6.3-8.2)
[2018-05-21 23:03] LABS: POTASSIUM 4.6 mmol/l (3.5-5.1)
[2018-05-21 23:04] LABS: BARBITURATES NEGATIVE (NEGATIVE); COCAINE NEGATIVE (NEGATIVE); METHADONE NEGATIVE (NEGATIVE); OXCYCODONE POSITIVE (NEGATIVE); TETRAHYDROCANNABIONOL NEGATIVE (NEGATIVE); TRICYLIC ANTIDEPRESSANTS NEGATIVE (NEGATIVE); URINE CLARITY CLOUDY
[2018-05-21 23:05] LABS: URINE RBC 0-2 RBC/hpf (0-5); URINE SQUAMOUS EPITHELIAL CELL MODERATE EPI/hpf (0-FEW); URINE WBC 0-2 WBC/hpf (0-5)
[2018-05-21 23:06] LABS: URINE BACTERIA FEW hpf; URINE MUCUS MODERATE hpf (NONE-FEW)
[2018-05-21] MEDS ORDERED: HYDROXYZ HCL25 MG PO (23:26)
[2018-05-22] VITALS: BP 98/55
== END 2018-05-22 00:02 | disposition home or self-care (01) ==
LOC: ED 22:03
PROVIDERS: Family Medicine
DX: F41.9 Anxiety disorder, unspecified (principal); R20.2 Paresthesia of skin; F17.200 Nicotine dependence, unspecified, uncomplicated

== ENCOUNTER 2018-05-27 19:05 | Emergency (ER) | payer OTHER ==
[~2018-05-27] VITALS: Ht 167.6 cm; Wt 72.0 kg
[~2018-05-27 19:05] MED LIST changes: +HYDROXYZ HCL25 MG PO; +PERCOCET 5/325M1 TAB PO
[2018-05-27] MEDS ORDERED: BACTROBAN TOP (19:32)
[2018-05-27] MEDS ORDERED: KEFLEX500 M1 PO (19:32)
[2018-05-27 19:43] VITALS: BP 119/76
== END 2018-05-27 19:43 | disposition home or self-care (01) ==
LOC: ED 19:05
DX: L73.9 Follicular disorder, unspecified (principal)

== ENCOUNTER 2018-06-29 17:32 | Emergency (ER) | payer OTHER ==
[~2018-06-29] VITALS: Ht 167.6 cm; Wt 71.4 kg
[~2018-06-29 17:32] MED LIST changes: +BACTROBAN TOP
[2018-06-29] MEDS ORDERED: PERCOCET 5/325M1 TAB PO (17:48)
[2018-06-29] MEDS ORDERED: AMOXICILLIN875 MG PO (18:33)
[2018-06-29 18:35] VITALS: BP 117/65
[2018-06-30] MEDS ORDERED: TAM75CAP PO (12:43)
== END 2018-06-29 18:43 | disposition home or self-care (01) ==
LOC: ED 17:32
DX: J02.9 Acute pharyngitis, unspecified (principal); F41.9 Anxiety disorder, unspecified; I45.10 Unspecified right bundle-branch block; F17.210 Nicotine dependence, cigarettes, uncomplicated; R50.9 Fever, unspecified

== ENCOUNTER 2018-06-30 11:25 | Emergency (ER) | payer OTHER ==
[~2018-06-30] VITALS: Ht 167.6 cm; Wt 71.4 kg
[~2018-06-30 11:25] MED LIST changes: +AMOXICILLIN875 MG PO
[2018-06-30 11:55] VITALS: BP 135/88
[2018-06-30 12:25] LABS: INFLUENZA A NONE DETECTED (NONE DETECT); INFLUENZA B NONE DETECTED (NONE DETECT)
[2018-06-30] MEDS ORDERED: TAM75CAP PO (12:43)
== END 2018-06-30 12:52 | disposition home or self-care (01) ==
LOC: ED 11:25
DX: B34.9 Viral infection, unspecified (principal); F41.9 Anxiety disorder, unspecified; F17.200 Nicotine dependence, unspecified, uncomplicated; R05 Cough; R50.9 Fever, unspecified; R52 Pain, unspecified

== ENCOUNTER 2018-07-14 16:55 | Emergency (ER) | payer OTHER ==
[~2018-07-14] VITALS: Ht 167.6 cm; Wt 69.0 kg
[~2018-07-14 16:55] MED LIST changes: +TAM75CAP PO
[2018-07-14 17:37] VITALS: BP 119/73
[2018-07-14 17:47] LABS: HEMATOCRIT 44.6 % (37.0-47.0); IMMATURE GRANULOCYTES 0.2 % (0.0-5.0); MEAN CELL VOLUME 97.2 fL CALC (80.0-100.0); MEAN CORPUSCULAR HGB 32.7 pG CALC (26.0-32.0); MEAN CORPUSCULAR HGB CONC 33.6 g/L CALC (32.0-36.0); NEUT# 5.6 thou/uL (2.00-7.15); RED BLOOD COUNT 4.59 mill/uL (4.20-5.60); RED CELL DISTRI WIDTH 12.6 % (11.5-15.5)
[2018-07-14 17:53] LABS: COCAINE NEGATIVE (NEGATIVE); TETRAHYDROCANNABIONOL NEGATIVE (NEGATIVE)
[2018-07-14 17:54] LABS: BARBITURATES NEGATIVE (NEGATIVE); METHADONE NEGATIVE (NEGATIVE); OXCYCODONE POSITIVE (NEGATIVE); TRICYLIC ANTIDEPRESSANTS NEGATIVE (NEGATIVE)
[2018-07-14 18:00] LABS: ALBUMIN 4.7 g/dL (3.2-5.0); ALKALINE PHOSPHATASE 68 u/l (38-126); ANION GAP 14 (6-22 (CALC)); BILIRUBIN, TOTAL 0.3 mg/dL (0.0-1.4); BUN 13 mg/dL (7-17); BUN/CREATININE RATIO 12 (12-20 (CALC)); CARBON DIOXIDE 28 mmol/l (22-30); CHLORIDE 104 mmol/l (95-108); CREATININE 1.1 mg/dL (0.5-1.0); GFR 58 ML/MIN (>=60 (CALC)); GFR FOR AFR.AMER. > 60 ML/MIN (>=60 (CALC)); LIPASE 57 u/l (23-300); POTASSIUM 3.9 mmol/l (3.5-5.1); SGOT/AST 24 u/l (14-36); SODIUM 141 mmol/l (137-146); TOTAL PROTEIN 7.9 g/dL (6.3-8.2)
[2018-07-14] MEDS ORDERED: ZOFRAN ODT4 MG PO (18:17)
== END 2018-07-14 18:36 | disposition home or self-care (01) ==
LOC: ED 16:55
PROVIDERS: Family Medicine
DX: K52.9 Noninfective gastroenteritis and colitis, unspecified (principal); F17.210 Nicotine dependence, cigarettes, uncomplicated; R11.2 Nausea with vomiting, unspecified

== ENCOUNTER 2018-07-26 18:53 | Emergency (ER) | payer OTHER ==
[~2018-07-26] VITALS: Ht 167.6 cm; Wt 67.0 kg
[2018-07-26] MEDS ORDERED: AUGMENTIN875TAB PO (19:46)
[2018-07-26 20:19] VITALS: BP 116/76
== END 2018-07-26 20:25 | disposition home or self-care (01) ==
LOC: ED 18:53
DX: H66.92 Otitis media, unspecified, left ear (principal); R05 Cough; H92.02 Otalgia, left ear

== ENCOUNTER 2018-08-12 00:21 | Emergency (ER) | payer OTHER ==
[~2018-08-12] VITALS: Ht 167.6 cm; Wt 70.6 kg
[~2018-08-12 00:21] MED LIST changes: +AUGMENTIN875TAB PO
[2018-08-12 02:09] LABS: URINE BILIRUBIN - DIPSTICK NEGATIVE (NEGATIVE); URINE BLOOD DIPSTICK NEGATIVE (NEGATIVE); URINE COLOR YELLOW; URINE GLUCOSE - DIPSTICK NEGATIVE (NEGATIVE); URINE KETONE NEGATIVE (NEGATIVE); URINE LEUK ESTERASE NEGATIVE (NEGATIVE); URINE NITRITE - DIPSTICK NEGATIVE (Negative); URINE PH 6.5 (4.5-8.0); URINE PROTEIN - DIPSTICK NEGATIVE (NEG-TRACE); URINE SPECIFIC GRAVITY 1.015; URINE UROBILINOGEN - DIPSTICK 0.2 E.U./dL (0.2)
[2018-08-12 02:23] LABS: URINE RBC 0-2 RBC/hpf (0-5); URINE SQUAMOUS EPITHELIAL CELL FEW EPI/hpf (0-FEW); URINE WBC 0-2 WBC/hpf (0-5)
[2018-08-12 02:24] LABS: URINE BACTERIA MODERATE hpf
[2018-08-12] MEDS ORDERED: IBUPROFEN600 MG PO (02:50)
[2018-08-12] MEDS ORDERED: ORPHENADRINE100 MG PO (02:50)
[2018-08-12 03:07] VITALS: BP 135/77
== END 2018-08-12 02:56 | disposition home or self-care (01) ==
LOC: ED 00:21
PROVIDERS: Emergency Medicine
DX: M54.5 Low back pain (principal); M51.26 Other intervertebral disc displacement, lumbar region; B95.4 Other streptococcus as the cause of diseases classified elsewhere

== ENCOUNTER 2018-10-12 01:13 | Emergency (ER) | payer MEDICAID ==
[~2018-10-12] VITALS: Ht 167.6 cm; Wt 72.7 kg
[2018-10-12] MEDS ORDERED: PERCOCET1 TA4 PO (01:23)
[2018-10-12 01:40] LABS: URINE BILIRUBIN - DIPSTICK NEGATIVE (NEGATIVE); URINE BLOOD DIPSTICK NEGATIVE (NEGATIVE); URINE COLOR YELLOW; URINE GLUCOSE - DIPSTICK NEGATIVE (NEGATIVE); URINE KETONE NEGATIVE (NEGATIVE); URINE LEUK ESTERASE NEGATIVE (NEGATIVE); URINE NITRITE - DIPSTICK NEGATIVE (Negative); URINE PH 5.5 (4.5-8.0); URINE PROTEIN - DIPSTICK NEGATIVE (NEG-TRACE); URINE SPECIFIC GRAVITY >=1.030; URINE UROBILINOGEN - DIPSTICK 0.2 E.U./dL (0.2)
[2018-10-12 01:42] LABS: URINE BACTERIA FEW hpf; URINE MUCUS MANY hpf (NONE-FEW); URINE RBC 0-2 RBC/hpf (0-5); URINE SQUAMOUS EPITHELIAL CELL MANY EPI/hpf (0-FEW); URINE WBC 0-2 WBC/hpf (0-5)
[2018-10-12] MEDS ORDERED: LOTRISONE EX (02:03)
[2018-10-12 02:10] VITALS: BP 120/77
== END 2018-10-12 02:10 | disposition home or self-care (01) ==
LOC: ED 01:13
PROVIDERS: Family Medicine
DX: R30.0 Dysuria (principal)

== ENCOUNTER 2018-10-22 21:34 | Emergency (ER) | payer MEDICAID ==
[~2018-10-22] VITALS: Ht 167.6 cm; Wt 77.0 kg
[~2018-10-22 21:34] MED LIST changes: +LOTRISONE EX; +PERCOCET1 TA4 PO
[2018-10-22 23:12] VITALS: BP 106/64
== END 2018-10-22 23:12 | disposition home or self-care (01) ==
LOC: ED 21:34
DX: G89.29 Other chronic pain (principal); M54.5 Low back pain; F17.210 Nicotine dependence, cigarettes, uncomplicated

== ENCOUNTER 2018-11-08 17:06 | Emergency (ER) | payer MEDICAID ==
[~2018-11-08] VITALS: Ht 167.6 cm; Wt 70.0 kg
[2018-11-08 17:48] VITALS: BP 132/85
== END 2018-11-08 17:50 | disposition left against medical advice (07) | DRG 951 ==
LOC: ED 17:06 → LWOBS 17:50
DX: Z91.19 Patient's noncompliance with other medical treatment and regimen (principal)

== ENCOUNTER 2018-11-20 16:42 | Emergency (ER) | payer MEDICAID | END 2018-11-20 17:05 | disposition left against medical advice (07) | DRG 951 | LOC: ED 16:42 → LWOBS 17:04 | DX: Z91.19 Patient's noncompliance with other medical treatment and regimen (principal) ==

== ENCOUNTER 2018-12-13 12:25 | Emergency (ER) | payer MEDICAID ==
[~2018-12-13] VITALS: Ht 167.6 cm; Wt 75.0 kg
[2018-12-13] MEDS ORDERED: PERCOCET 10/31 COMBO PO (13:01)
[2018-12-13 13:28] LABS: HEMATOCRIT 42.5 % (37.0-47.0); HEMOGLOBIN 13.9 g/dl (12.0-16.0); IMMATURE GRANULOCYTES 0.4 % (0.0-5.0); MEAN CELL VOLUME 95.3 fL CALC (80.0-100.0); MEAN CORPUSCULAR HGB 31.2 pG CALC (26.0-32.0); MEAN CORPUSCULAR HGB CONC 32.7 g/L CALC (32.0-36.0); NEUT# 3.87 thou/uL (2.00-7.15); RED BLOOD COUNT 4.46 mill/uL (4.20-5.60); RED CELL DISTRI WIDTH 12.2 % (11.5-15.5)
[2018-12-13 13:50] LABS: ALBUMIN 4.5 g/dL (3.2-5.0); ALKALINE PHOSPHATASE 91 u/l (38-126); BILIRUBIN, TOTAL 0.3 mg/dL (0.0-1.4); BUN 12 mg/dL (7-17); BUN/CREATININE RATIO 14 (12-20 (CALC)); CHLORIDE 107 mmol/l (95-108); CREATININE 0.8 mg/dL (0.5-1.0); GFR > 60 ML/MIN (>=60 (CALC)); GFR FOR AFR.AMER. > 60 ML/MIN (>=60 (CALC)); POTASSIUM 3.8 mmol/l (3.5-5.1); SODIUM 141 mmol/l (137-146); TOTAL PROTEIN 7.3 g/dL (6.3-8.2)
[2018-12-13 13:52] LABS: ANION GAP 16 (6-22 (CALC)); CARBON DIOXIDE 22 mmol/l (22-30); SGOT/AST 46 u/l (14-36)
[2018-12-13 13:59] LABS: URINE BILIRUBIN - DIPSTICK NEGATIVE (NEGATIVE); URINE BLOOD DIPSTICK NEGATIVE (NEGATIVE); URINE COLOR YELLOW; URINE GLUCOSE - DIPSTICK NEGATIVE (NEGATIVE); URINE KETONE NEGATIVE (NEGATIVE); URINE LEUK ESTERASE NEGATIVE (NEGATIVE); URINE NITRITE - DIPSTICK NEGATIVE (Negative); URINE PH 5.5 (4.5-8.0); URINE PROTEIN - DIPSTICK NEGATIVE (NEG-TRACE); URINE UROBILINOGEN - DIPSTICK 0.2 E.U./dL (0.2)
[2018-12-13] MEDS ORDERED: XANAX0.25 MG PO (14:23)
[2018-12-13 14:41] VITALS: BP 124/80
== END 2018-12-13 14:51 | disposition home or self-care (01) ==
LOC: ED 12:25
PROVIDERS: Emergency Medicine
DX: F41.9 Anxiety disorder, unspecified (principal); F17.200 Nicotine dependence, unspecified, uncomplicated
CPT/HCPCS: J2060

== ENCOUNTER 2018-12-16 22:46 | Emergency (ER) | payer MEDICAID ==
[2018-12-17] MEDS ORDERED: MOTRIN400 MG PO (14:29)
[2018-12-17] MEDS ORDERED: CYCLOBENZAPR5 MG PO (14:29)
== END 2018-12-16 22:59 | disposition left against medical advice (07) | DRG 951 ==
LOC: ED 22:46 → LWOBS 22:59
DX: Z91.19 Patient's noncompliance with other medical treatment and regimen (principal)

== ENCOUNTER 2018-12-17 14:02 | Emergency (ER) | payer MEDICAID ==
[~2018-12-17] VITALS: Ht 167.6 cm; Wt 80.0 kg
[2018-12-17] MEDS ORDERED: MOTRIN400 MG PO (14:29)
[2018-12-17] MEDS ORDERED: CYCLOBENZAPR5 MG PO (14:29)
[2018-12-17 14:56] VITALS: BP 130/71
== END 2018-12-17 15:05 | disposition home or self-care (01) ==
LOC: ED 14:02
DX: M62.830 Muscle spasm of back (principal); F17.200 Nicotine dependence, unspecified, uncomplicated

== ENCOUNTER 2018-12-24 21:11 | Emergency (ER) | payer MEDICAID ==
[~2018-12-24] VITALS: Ht 167.6 cm; Wt 70.5 kg
[~2018-12-24 21:11] MED LIST changes: +CYCLOBENZAPR5 MG PO; +MOTRIN400 MG PO
[2018-12-24] MEDS ORDERED: ULTRAM50 M1 PO (22:49)
[2018-12-24] MEDS ORDERED: FLEXERIL PO (22:49)
[2018-12-24 23:01] VITALS: BP 119/72
== END 2018-12-24 23:07 | disposition home or self-care (01) ==
LOC: ED 21:11
DX: M54.40 Lumbago with sciatica, unspecified side (principal); F17.210 Nicotine dependence, cigarettes, uncomplicated

== ENCOUNTER 2019-01-25 23:09 | Emergency (ER) | payer OTHER ==
[~2019-01-25] VITALS: Ht 167.6 cm; Wt 70.5 kg
[2019-01-25 23:44] LABS: URINE BILIRUBIN - DIPSTICK NEGATIVE (NEGATIVE); URINE BLOOD DIPSTICK NEGATIVE (NEGATIVE); URINE COLOR YELLOW; URINE GLUCOSE - DIPSTICK NEGATIVE (NEGATIVE); URINE KETONE NEGATIVE (NEGATIVE); URINE LEUK ESTERASE NEGATIVE (NEGATIVE); URINE NITRITE - DIPSTICK NEGATIVE (Negative); URINE PROTEIN - DIPSTICK NEGATIVE (NEG-TRACE); URINE UROBILINOGEN - DIPSTICK 0.2 E.U./dL (0.2)
[2019-01-25 23:47] LABS: HEMATOCRIT 42.8 % (37.0-47.0); HEMOGLOBIN 14.4 g/dl (12.0-16.0); IMMATURE GRANULOCYTES 0.4 % (0.0-5.0); MEAN CELL VOLUME 92.8 fL CALC (80.0-100.0); MEAN CORPUSCULAR HGB 31.2 pG CALC (26.0-32.0); MEAN CORPUSCULAR HGB CONC 33.6 g/L CALC (32.0-36.0); NEUT# 4.91 thou/uL (2.00-7.15); RED BLOOD COUNT 4.61 mill/uL (4.20-5.60); RED CELL DISTRI WIDTH 12.4 % (11.5-15.5)
[2019-01-25 23:56] LABS: ALBUMIN 4.4 g/dL (3.2-5.0); ALKALINE PHOSPHATASE 67 u/l (38-126); BILIRUBIN, TOTAL 0.3 mg/dL (0.0-1.4); BUN 8 mg/dL (7-17); BUN/CREATININE RATIO 11 (12-20 (CALC)); CHLORIDE 105 mmol/l (95-108); CREATININE 0.8 mg/dL (0.5-1.0); GFR > 60 ML/MIN (>=60 (CALC)); GFR FOR AFR.AMER. > 60 ML/MIN (>=60 (CALC)); LIPASE 46 u/l (23-300); POTASSIUM 3.6 mmol/l (3.5-5.1); SGOT/AST 25 u/l (14-36); SODIUM 142 mmol/l (137-146); TOTAL PROTEIN 6.9 g/dL (6.3-8.2)
[2019-01-25 23:57] LABS: AMYLASE < 30 u/l (30-110); ANION GAP 14 (6-22 (CALC)); CARBON DIOXIDE 27 mmol/l (22-30)
[2019-01-26 01:19] VITALS: BP 120/70
== END 2019-01-26 01:22 | disposition home or self-care (01) ==
LOC: ED 23:09
PROVIDERS: Emergency Medicine
DX: R10.9 Unspecified abdominal pain (principal); R11.0 Nausea; R30.0 Dysuria; F17.210 Nicotine dependence, cigarettes, uncomplicated

== ENCOUNTER 2019-02-20 18:35 | Emergency (ER) | payer OTHER ==
[~2019-02-20] VITALS: Ht 167.6 cm; Wt 70.5 kg
[~2019-02-20 18:35] MED LIST changes: +[UNRECOGNIZED DRUG - OTHER] PO
[2019-02-20] MEDS ORDERED: PENICILLN VK500 MG PO (19:26)
[2019-02-20] MEDS ORDERED: TRAMADOL HYDROC50 MG PO (19:27)
[2019-02-20 19:36] VITALS: BP 112/78
== END 2019-02-20 19:36 | disposition home or self-care (01) ==
LOC: ED 18:35
DX: K02.9 Dental caries, unspecified (principal); F17.210 Nicotine dependence, cigarettes, uncomplicated

== ENCOUNTER 2019-06-30 10:27 | Emergency (ER) | payer OTHER ==
[~2019-06-30 10:27] MED LIST changes: +PENICILLN VK500 MG PO
== END 2019-06-30 10:50 | disposition left against medical advice (07) | DRG 951 ==
LOC: ED 10:27 → LWOBS 10:50
DX: Z53.21 Procedure and treatment not carried out due to patient leaving prior to being seen by health care provider (principal)

== ENCOUNTER 2019-07-20 21:23 | Emergency (ER) | payer OTHER ==
[~2019-07-20] VITALS: Ht 167.6 cm; Wt 77.8 kg
[2019-07-20] MEDS ORDERED: ATROVENT H17 MCG/ACT IN (21:36)
[2019-07-20] MEDS ORDERED: ZPAK PO (23:06)
[2019-07-20 23:20] VITALS: BP 126/76
== END 2019-07-20 23:20 | disposition home or self-care (01) ==
LOC: ED 21:23
DX: J06.9 Acute upper respiratory infection, unspecified (principal); F17.200 Nicotine dependence, unspecified, uncomplicated

== ENCOUNTER 2019-08-23 19:06 | Emergency (ER) | payer OTHER ==
[~2019-08-23] VITALS: Ht 167.6 cm; Wt 77.0 kg
[~2019-08-23 19:06] MED LIST changes: +ATROVENT H17 MCG/ACT IN
[2019-08-23 19:42] LABS: URINE BILIRUBIN - DIPSTICK NEGATIVE (NEGATIVE); URINE BLOOD DIPSTICK NEGATIVE (NEGATIVE); URINE CLARITY CLEAR; URINE COLOR YELLOW; URINE GLUCOSE - DIPSTICK NEGATIVE (NEGATIVE); URINE KETONE NEGATIVE (NEGATIVE); URINE LEUK ESTERASE NEGATIVE (Negative); URINE NITRITE - DIPSTICK NEGATIVE (Negative); URINE PROTEIN - DIPSTICK NEGATIVE (NEG-TRACE); URINE SPECIFIC GRAVITY 1.025; URINE UROBILINOGEN - DIPSTICK 0.2 E.U./dL (0.2)
[2019-08-23 20:25] VITALS: BP 138/89
[2020-01-19] MEDS ORDERED: MEDDOSEPAK PO (11:09)
[2020-01-19] MEDS ORDERED: TRAMADOL HCL50 MG PO (11:10)
== END 2019-08-23 20:20 | disposition left against medical advice (07) | DRG 103 ==
LOC: ED 19:06
DX: R51 Headache (principal); M54.2 Cervicalgia; F17.210 Nicotine dependence, cigarettes, uncomplicated; Z91.19 Patient's noncompliance with other medical treatment and regimen; V49.40XA Driver injured in collision with unspecified motor vehicles in traffic accident, initial encounter

== ENCOUNTER 2019-08-24 | Emergency (ER) | payer OTHER ==
[2020-01-19] MEDS ORDERED: MEDDOSEPAK PO (11:09)
[2020-01-19] MEDS ORDERED: TRAMADOL HCL50 MG PO (11:10)
== END 2019-08-24 11:05 | disposition home or self-care (01) | DRG 552 ==
DX: S16.1XXA Strain of muscle, fascia and tendon at neck level, initial encounter (principal); M54.5 Low back pain; F17.210 Nicotine dependence, cigarettes, uncomplicated; V43.52XA Car driver injured in collision with other type car in traffic accident, initial encounter

== ENCOUNTER 2020-05-29 11:16 | Emergency (ER) | payer OTHER ==
[~2020-05-29] VITALS: Ht 167.6 cm; Wt 81.0 kg
[~2020-05-29 11:16] MED LIST changes: +MEDDOSEPAK PO
[2020-05-29 11:55] LABS: HEMATOCRIT 45.7 % (37.0-47.0); HEMOGLOBIN 15.5 g/dl (12.0-16.0); IMMATURE GRANULOCYTES 0.4 % (0.0-5.0); MEAN CELL VOLUME 92.3 fL CALC (80.0-100.0); MEAN CORPUSCULAR HGB 31.3 pG CALC (26.0-32.0); MEAN CORPUSCULAR HGB CONC 33.9 g/dL CAL (32.0-36.0); NEUT# 5.83 thou/uL (2.00-7.15); RED BLOOD COUNT 4.95 mill/uL (4.20-5.60); RED CELL DISTRI WIDTH 12.2 % (11.5-15.5)
[2020-05-29 11:58] LABS: URINE BILIRUBIN - DIPSTICK NEGATIVE (NEGATIVE); URINE BLOOD DIPSTICK NEGATIVE (NEGATIVE); URINE COLOR YELLOW; URINE GLUCOSE - DIPSTICK NEGATIVE (NEGATIVE); URINE KETONE NEGATIVE (NEGATIVE); URINE LEUK ESTERASE NEGATIVE (NEGATIVE); URINE NITRITE - DIPSTICK NEGATIVE (Negative); URINE PROTEIN - DIPSTICK NEGATIVE (NEG-TRACE); URINE SPECIFIC GRAVITY <=1.005; URINE UROBILINOGEN - DIPSTICK 0.2 E.U./dL (0.2)
[2020-05-29 12:07] LABS: ALBUMIN 4.4 g/dL (3.2-5.0); ALKALINE PHOSPHATASE 70 u/l (38-126); ANION GAP 10 (6-22 (CALC)); BILIRUBIN, TOTAL 0.4 mg/dL (0.0-1.4); BUN 7 mg/dL (7-17); BUN/CREATININE RATIO 7 (12-20 (CALC)); CARBON DIOXIDE 28 mmol/l (22-30); CHLORIDE 104 mmol/l (95-108); CREATININE 0.9 mg/dL (0.5-1.0); GFR > 60 ML/MIN (>=60 (CALC)); GFR FOR AFR.AMER. > 60 ML/MIN (>=60 (CALC)); LIPASE 48 u/l (23-300); POTASSIUM 4.3 mmol/l (3.5-5.1); SGOT/AST 21 u/l (14-36); SODIUM 138 mmol/l (137-146); TOTAL PROTEIN 7.2 g/dL (6.3-8.2)
[2020-05-29 15:49] VITALS: BP 111/62
== END 2020-05-29 15:55 | disposition home or self-care (01) ==
LOC: ED 11:16
PROVIDERS: Family Medicine
DX: M54.5 Low back pain (principal); F41.9 Anxiety disorder, unspecified; F17.210 Nicotine dependence, cigarettes, uncomplicated
CPT/HCPCS: Q9967

== ENCOUNTER 2020-10-04 19:49 | Emergency (ER) | payer OTHER | END 2020-10-04 20:17 | disposition left against medical advice (07) | DRG 951 | LOC: ED 19:49 → LWOBS 20:13 | DX: Z53.21 Procedure and treatment not carried out due to patient leaving prior to being seen by health care provider (principal) ==

== ENCOUNTER 2020-11-26 | Emergency (ER) | payer OTHER ==
[2021-03-07] MEDS ORDERED: IBUPROFEN600 MG PO (13:01)
[2021-03-07] MEDS ORDERED: MEDDOSEPAK PO (13:35)
[2021-03-07] MEDS ORDERED: TRAMADOL HCL50 MG PO ×2 (13:37→13:38)
[2021-06-20] MEDS ORDERED: HYDROCO/APAP1 T10 PO ×2 (09:29→09:34)
[2021-06-20] MEDS ORDERED: DICLOFENAC75 MG PO ×2 (09:33→09:35)
[2021-06-20] MEDS ORDERED: MEDDOSEPAK PO (09:37)
[2021-07-25] MEDS ORDERED: HYDROCO/APAP1 T10 PO (16:30)
== END 2020-11-27 01:32 | disposition home or self-care (01) ==
DX: M72.2 Plantar fascial fibromatosis (principal); F17.200 Nicotine dependence, unspecified, uncomplicated

== ENCOUNTER 2021-02-27 17:13 | Emergency (ER) | payer OTHER ==
[~2021-02-27] VITALS: Ht 167.6 cm; Wt 90.0 kg
[2021-02-27] MEDS ORDERED: PENICILLN VK500 MG PO (18:08)
[2021-02-27 18:18] VITALS: BP 127/56
[2021-03-07] MEDS ORDERED: IBUPROFEN600 MG PO (13:01)
[2021-03-07] MEDS ORDERED: MEDDOSEPAK PO (13:35)
[2021-03-07] MEDS ORDERED: TRAMADOL HCL50 MG PO ×2 (13:37→13:38)
== END 2021-02-27 18:25 | disposition home or self-care (01) ==
LOC: ED 17:13
DX: K04.7 Periapical abscess without sinus (principal); K08.409 Partial loss of teeth, unspecified cause, unspecified class; F41.9 Anxiety disorder, unspecified; F17.200 Nicotine dependence, unspecified, uncomplicated

== ENCOUNTER 2021-06-03 14:34 | Emergency (ER) | payer OTHER ==
[~2021-06-03] VITALS: Ht 167.6 cm; Wt 82.0 kg
[2021-06-03 17:00] VITALS: BP 133/84
== END 2021-06-03 17:00 | disposition home or self-care (01) ==
LOC: ED 14:34
DX: M54.6 Pain in thoracic spine (principal); M54.50 Low back pain, unspecified; F41.9 Anxiety disorder, unspecified; F17.200 Nicotine dependence, unspecified, uncomplicated; X50.0XXA Overexertion from strenuous movement or load, initial encounter; Y93.K1 Activity, walking an animal

== ENCOUNTER 2021-09-13 13:49 | Emergency (ER) | payer OTHER ==
[~2021-09-13] VITALS: Ht 167.6 cm; Wt 81.0 kg
[~2021-09-13 13:49] MED LIST changes: +DICLOFENAC75 MG PO
[2021-09-13] MEDS ORDERED: TIZANIDINE4 MG PO (14:53)
[2021-09-13 15:00] LABS: URINE BILIRUBIN - DIPSTICK NEGATIVE (NEGATIVE); URINE BLOOD DIPSTICK LARGE (NEGATIVE); URINE COLOR YELLOW; URINE GLUCOSE - DIPSTICK NEGATIVE (NEGATIVE); URINE KETONE NEGATIVE (NEGATIVE); URINE PROTEIN - DIPSTICK 100 mg/dL (NEG-TRACE); URINE UROBILINOGEN - DIPSTICK 0.2 E.U./dL (0.2)
[2021-09-13 15:02] LABS: URINE LEUK ESTERASE SMALL (NEGATIVE); URINE NITRITE - DIPSTICK NEGATIVE (Negative)
[2021-09-13 15:06] LABS: URINE BACTERIA MANY hpf; URINE SQUAMOUS EPITHELIAL CELL MANY EPI/hpf (0-FEW); URINE WBC 50-100 WBC/hpf (0-5)
[2021-09-13 16:15] LABS: HEMATOCRIT 45.2 % (37.0-47.0); HEMOGLOBIN 14.7 g/dl (12.0-16.0); IMMATURE GRANULOCYTES 0.2 % (0.0-5.0); MEAN CELL VOLUME 93.4 fL CALC (80.0-100.0); MEAN CORPUSCULAR HGB 30.4 pG CALC (26.0-32.0); MEAN CORPUSCULAR HGB CONC 32.5 g/dL CAL (32.0-36.0); NEUT# 7.89 thou/uL (2.00-7.15); RED BLOOD COUNT 4.84 mill/uL (4.20-5.60); RED CELL DISTRI WIDTH 12.6 % (11.5-15.5)
[2021-09-13 16:32] LABS: ALBUMIN 4.2 g/dL (3.2-5.0); ALKALINE PHOSPHATASE 70 u/l (38-126); ANION GAP 14 (6-22 (CALC)); BILIRUBIN, TOTAL 0.5 mg/dL (0.0-1.4); BUN 8 mg/dL (7-17); BUN/CREATININE RATIO 11 (12-20 (CALC)); CARBON DIOXIDE 24 mmol/l (22-30); CHLORIDE 106 mmol/l (95-108); CREATININE 0.8 mg/dL (0.5-1.0); GFR > 60 ML/MIN (>=60 (CALC)); GFR FOR AFR.AMER. > 60 ML/MIN (>=60 (CALC)); POTASSIUM 4.4 mmol/l (3.5-5.1); SGOT/AST 31 u/l (14-36); SODIUM 140 mmol/l (137-146); TOTAL PROTEIN 7.8 g/dL (6.3-8.2)
[2021-09-13] MEDS ORDERED: ONDANSETRON4 MG PO (17:21)
[2021-09-13] MEDS ORDERED: OMNI-PAC300 MG PO (17:21)
[2021-09-13 17:46] VITALS: BP 109/57
== END 2021-09-13 17:50 | disposition home or self-care (01) ==
LOC: ED 13:49
PROVIDERS: Family Medicine
DX: N39.0 Urinary tract infection, site not specified (principal); B96.20 Unspecified Escherichia coli [E. coli] as the cause of diseases classified elsewhere; F41.9 Anxiety disorder, unspecified; I45.10 Unspecified right bundle-branch block; F17.210 Nicotine dependence, cigarettes, uncomplicated

== ENCOUNTER 2021-11-06 03:56 | Emergency (ER) | payer OTHER ==
[2021-11-06] VITALS (7 sets, daily range): BP systolic 93–123; BP diastolic 58–80
[~2021-11-06] VITALS: Ht 167.6 cm; Wt 82.0 kg
[~2021-11-06 03:56] MED LIST changes: +OMNI-PAC300 MG PO; +TIZANIDINE4 MG PO
[2021-11-06 04:40] LABS: HEMATOCRIT 43.9 % (37.0-47.0); HEMOGLOBIN 14.4 g/dl (12.0-16.0); IMMATURE GRANULOCYTES 0.7 % (0.0-5.0); MEAN CELL VOLUME 92.2 fL CALC (80.0-100.0); MEAN CORPUSCULAR HGB 30.3 pG CALC (26.0-32.0); MEAN CORPUSCULAR HGB CONC 32.8 g/dL CAL (32.0-36.0); NEUT# 6.54 thou/uL (2.00-7.15); RED BLOOD COUNT 4.76 mill/uL (4.20-5.60); RED CELL DISTRI WIDTH 12.6 % (11.5-15.5)
[2021-11-06 04:43] LABS: URINE BILIRUBIN - DIPSTICK NEGATIVE (NEGATIVE); URINE BLOOD DIPSTICK NEGATIVE (NEGATIVE); URINE COLOR YELLOW; URINE GLUCOSE - DIPSTICK NEGATIVE (NEGATIVE); URINE KETONE NEGATIVE (NEGATIVE); URINE LEUK ESTERASE NEGATIVE (NEGATIVE); URINE PROTEIN - DIPSTICK NEGATIVE (NEG-TRACE); URINE SPECIFIC GRAVITY 1.025; URINE UROBILINOGEN - DIPSTICK 0.2 E.U./dL (0.2)
[2021-11-06 04:46] LABS: URINE NITRITE - DIPSTICK NEGATIVE (Negative)
[2021-11-06 05:02] LABS: ALBUMIN 4.4 g/dL (3.2-5.0); BILIRUBIN, TOTAL 0.2 mg/dL (0.0-1.4); CREATININE 1.3 mg/dL (0.5-1.0); MAGNESIUM 1.8 mg/dL (1.6-2.3); POTASSIUM 3.8 mmol/l (3.5-5.1); TOTAL PROTEIN 7.7 g/dL (6.3-8.2)
[2021-11-06 05:03] LABS: ACT PARTIAL THROMBO TIME 25.9 SECONDS (20.0-32.5); INTERNATIONAL NORMALIZED RATIO 0.9 RATIO (0.7-1.3); PROTHROMBIN TIME 9.8 SECONDS (9.0-12.5)
[2021-11-06 05:32] LABS: TSH, 3RD GENERATION 4.12 uIU/mL (0.47 - 4.68)
[2021-11-06] MEDS ORDERED: BACTRIM DS1 TAB PO (06:06)
== END 2021-11-06 06:19 | disposition home or self-care (01) ==
LOC: ED 03:56
PROVIDERS: Family Medicine
DX: L03.211 Cellulitis of face (principal); L02.01 Cutaneous abscess of face; R20.2 Paresthesia of skin; F41.9 Anxiety disorder, unspecified; F17.200 Nicotine dependence, unspecified, uncomplicated

== ENCOUNTER 2021-12-07 19:53 | Emergency (ER) | payer OTHER ==
[~2021-12-07] VITALS: Ht 167.6 cm; Wt 85.0 kg
[2021-12-07 20:26] VITALS: BP 136/93
[2021-12-07 21:12] LABS: HEMATOCRIT 42.1 % (37.0-47.0); IMMATURE GRANULOCYTES 0.1 % (0.0-5.0); MEAN CELL VOLUME 92.3 fL CALC (80.0-100.0); MEAN CORPUSCULAR HGB 30.7 pG CALC (26.0-32.0); MEAN CORPUSCULAR HGB CONC 33.3 g/dL CAL (32.0-36.0); NEUT# 4.44 thou/uL (2.00-7.15); RED BLOOD COUNT 4.56 mill/uL (4.20-5.60); RED CELL DISTRI WIDTH 12.8 % (11.5-15.5)
[2021-12-07 21:22] LABS: ALBUMIN 4.1 g/dL (3.2-5.0); ALKALINE PHOSPHATASE 74 u/l (38-126); AMYLASE 53 u/l (30-110); ANION GAP 7 (6-22 (CALC)); BUN 11 mg/dL (7-17); BUN/CREATININE RATIO 13 (12-20 (CALC)); CARBON DIOXIDE 29 mmol/l (22-30); CHLORIDE 105 mmol/l (95-108); CREATININE 0.9 mg/dL (0.5-1.0); GFR > 60 ML/MIN (>=60 (CALC)); GFR FOR AFR.AMER. > 60 ML/MIN (>=60 (CALC)); LIPASE 42 u/l (23-300); POTASSIUM 4.2 mmol/l (3.5-5.1); SGOT/AST 28 u/l (14-36); SODIUM 137 mmol/l (137-146); TOTAL PROTEIN 7.3 g/dL (6.3-8.2)
[2021-12-07 21:23] LABS: BILIRUBIN, TOTAL 0.3 mg/dL (0.0-1.4)
[2021-12-07 21:37] LABS: URINE BILIRUBIN - DIPSTICK NEGATIVE (NEGATIVE); URINE BLOOD DIPSTICK NEGATIVE (NEGATIVE); URINE COLOR YELLOW; URINE GLUCOSE - DIPSTICK NEGATIVE (NEGATIVE); URINE KETONE NEGATIVE (NEGATIVE); URINE LEUK ESTERASE NEGATIVE (NEGATIVE); URINE PROTEIN - DIPSTICK NEGATIVE (NEG-TRACE); URINE SPECIFIC GRAVITY 1.015; URINE UROBILINOGEN - DIPSTICK 0.2 E.U./dL (0.2)
[2021-12-07 21:38] LABS: URINE NITRITE - DIPSTICK NEGATIVE (Negative)
[2021-12-07] MEDS ORDERED: CARAFATE PO (22:28)
[2021-12-07 22:47] VITALS: BP 136/93
== END 2021-12-07 22:56 | disposition home or self-care (01) ==
LOC: ED 19:53
PROVIDERS: Emergency Medicine
DX: K29.70 Gastritis, unspecified, without bleeding (principal); F41.9 Anxiety disorder, unspecified; F17.200 Nicotine dependence, unspecified, uncomplicated
CPT/HCPCS: Q9967; S0164

== ENCOUNTER 2022-02-27 07:39 | Emergency (ER) | payer OTHER ==
[~2022-02-27] VITALS: Ht 167.6 cm; Wt 90.9 kg
[~2022-02-27 07:39] MED LIST changes: +CARAFATE PO
[2022-02-27 07:51] VITALS: BP 130/75
[2022-02-27] MEDS ORDERED: PERCOCET 10/31 COMBO PO (07:54)
[2022-02-27 08:01] VITALS: BP 114/69
[2022-02-27 08:13] LABS: HEMATOCRIT 41.3 % (37.0-47.0); IMMATURE GRANULOCYTES 0.1 % (0.0-5.0); MEAN CELL VOLUME 92.2 fL CALC (80.0-100.0); MEAN CORPUSCULAR HGB 31.3 pG CALC (26.0-32.0); MEAN CORPUSCULAR HGB CONC 33.9 g/dL CAL (32.0-36.0); NEUT# 4.44 thou/uL (2.00-7.15); RED BLOOD COUNT 4.48 mill/uL (4.20-5.60); RED CELL DISTRI WIDTH 12.6 % (11.5-15.5)
[2022-02-27 08:30] VITALS: BP 124/81
[2022-02-27 08:40] LABS: ALBUMIN 4.5 g/dL (3.2-5.0); ALKALINE PHOSPHATASE 86 u/l (38-126); ANION GAP 11 (6-22 (CALC)); BILIRUBIN, TOTAL 0.2 mg/dL (0.0-1.4); BUN 9 mg/dL (7-17); BUN/CREATININE RATIO 11 (12-20 (CALC)); CARBON DIOXIDE 28 mmol/l (22-30); CHLORIDE 106 mmol/l (95-108); CREATININE 0.8 mg/dL (0.5-1.0); GFR FOR AFR.AMER. > 60 ML/MIN (>=60 (CALC)); GFR OTHER RACES > 60 ML/MIN (>=60 (CALC)); LIPASE 55 u/l (23-300); POTASSIUM 4.1 mmol/l (3.5-5.1); SGOT/AST 34 u/l (14-36); SODIUM 140 mmol/l (137-146); TOTAL PROTEIN 7.5 g/dL (6.3-8.2)
[2022-02-27 08:43] VITALS: BP 96/62
[2022-02-27 09:00] VITALS: BP 105/61
[2022-02-27 09:15] LABS: URINE BILIRUBIN - DIPSTICK NEGATIVE (NEGATIVE); URINE BLOOD DIPSTICK NEGATIVE (NEGATIVE); URINE COLOR YELLOW; URINE GLUCOSE - DIPSTICK NEGATIVE (NEGATIVE); URINE KETONE NEGATIVE (NEGATIVE); URINE LEUK ESTERASE NEGATIVE (NEGATIVE); URINE PROTEIN - DIPSTICK NEGATIVE (NEG-TRACE); URINE UROBILINOGEN - DIPSTICK 0.2 E.U./dL (0.2)
[2022-02-27 09:24] LABS: URINE NITRITE - DIPSTICK NEGATIVE (Negative)
[2022-02-27 10:09] VITALS: BP 105/61
== END 2022-02-27 10:37 | disposition home or self-care (01) ==
LOC: ED 07:39
PROVIDERS: Family Medicine
DX: K59.00 Constipation, unspecified (principal); F41.9 Anxiety disorder, unspecified; F17.210 Nicotine dependence, cigarettes, uncomplicated
CPT/HCPCS: Q9967

== ENCOUNTER 2022-04-21 08:01 | Emergency (ER) | payer OTHER ==
[2022-04-21] VITALS (10 sets, daily range): BP systolic 99–157; BP diastolic 55–91
[~2022-04-21] VITALS: Ht 167.6 cm; Wt 92.0 kg
[2022-04-21 09:51] LABS: HEMOGLOBIN 13.5 g/dl (12.0-16.0); IMMATURE GRANULOCYTES 0.2 % (0.0-5.0); MEAN CELL VOLUME 91.5 fL CALC (80.0-100.0); MEAN CORPUSCULAR HGB 30.9 pG CALC (26.0-32.0); MEAN CORPUSCULAR HGB CONC 33.8 g/dL CAL (32.0-36.0); NEUT# 3.74 thou/uL (2.00-7.15); RED BLOOD COUNT 4.37 mill/uL (4.20-5.60); RED CELL DISTRI WIDTH 12.1 % (11.5-15.5)
[2022-04-21 10:36] LABS: ALBUMIN 4.2 g/dL (3.2-5.0); ALKALINE PHOSPHATASE 83 u/l (38-126); ANION GAP 13 (6-22 (CALC)); BILIRUBIN, TOTAL 0.2 mg/dL (0.0-1.4); BUN 13 mg/dL (7-17); BUN/CREATININE RATIO 16 (12-20 (CALC)); CARBON DIOXIDE 29 mmol/l (22-30); CHLORIDE 102 mmol/l (95-108); CPK 127 u/l (30-165); CREATININE 0.8 mg/dL (0.5-1.0); GFR FOR AFR.AMER. > 60 ML/MIN (>=60 (CALC)); GFR OTHER RACES > 60 ML/MIN (>=60 (CALC)); POTASSIUM 4.2 mmol/l (3.5-5.1); SGOT/AST 26 u/l (14-36); SODIUM 139 mmol/l (137-146); TOTAL PROTEIN 6.8 g/dL (6.3-8.2)
== END 2022-04-21 11:08 | disposition home or self-care (01) ==
LOC: ED 08:01
PROVIDERS: Internal Medicine
DX: M79.605 Pain in left leg (principal); M79.604 Pain in right leg; F41.9 Anxiety disorder, unspecified; F17.210 Nicotine dependence, cigarettes, uncomplicated

== ENCOUNTER 2022-06-11 05:12 | Emergency (ER) | payer OTHER ==
[~2022-06-11] VITALS: Ht 167.6 cm; Wt 89.0 kg
[2022-06-11 06:04] LABS: HEMATOCRIT 39.4 % (37.0-47.0); IMMATURE GRANULOCYTES 0.1 % (0.0-5.0); MEAN CELL VOLUME 91.6 fL CALC (80.0-100.0); MEAN CORPUSCULAR HGB 30.2 pG CALC (26.0-32.0); NEUT# 4.4 thou/uL (2.00-7.15); RED BLOOD COUNT 4.3 mill/uL (4.20-5.60); RED CELL DISTRI WIDTH 12.9 % (11.5-15.5)
[2022-06-11 06:23] LABS: ALBUMIN 4.2 g/dL (3.2-5.0); ALKALINE PHOSPHATASE 82 u/l (38-126); ANION GAP 11 (6-22 (CALC)); BILIRUBIN, TOTAL 0.2 mg/dL (0.0-1.4); BUN 9 mg/dL (7-17); BUN/CREATININE RATIO 11 (12-20 (CALC)); CARBON DIOXIDE 28 mmol/l (22-30); CHLORIDE 104 mmol/l (95-108); CREATININE 0.9 mg/dL (0.5-1.0); GFR FOR AFR.AMER. > 60 ML/MIN (>=60 (CALC)); GFR OTHER RACES > 60 ML/MIN (>=60 (CALC)); SGOT/AST 30 u/l (14-36); SODIUM 138 mmol/l (137-146)
[2022-06-11 07:06] VITALS: BP 128/80
== END 2022-06-11 07:19 | disposition home or self-care (01) ==
LOC: ED 05:12
PROVIDERS: Emergency Medicine
DX: R60.0 Localized edema (principal)

== ENCOUNTER 2022-06-17 08:56 | Emergency (ER) | payer OTHER ==
[~2022-06-17] VITALS: Ht 167.6 cm; Wt 86.0 kg
[2022-06-17 09:13] VITALS: BP 102/73
[2022-06-17 09:22] LABS: URINE BILIRUBIN - DIPSTICK NEGATIVE (NEGATIVE); URINE BLOOD DIPSTICK SMALL (NEGATIVE); URINE COLOR YELLOW; URINE GLUCOSE - DIPSTICK NEGATIVE (NEGATIVE); URINE KETONE NEGATIVE (NEGATIVE); URINE PROTEIN - DIPSTICK TRACE mg/dL (NEG-TRACE); URINE SPECIFIC GRAVITY 1.025
[2022-06-17 09:28] LABS: URINE LEUK ESTERASE MODERATE (NEGATIVE); URINE NITRITE - DIPSTICK POSITIVE (Negative)
[2022-06-17 09:30] LABS: URINE BACTERIA FEW hpf; URINE SQUAMOUS EPITHELIAL CELL FEW EPI/hpf (0-FEW); URINE WBC 50-100 WBC/hpf (0-5)
[2022-06-17] MEDS ORDERED: AMOX/K CLAV875 M1 PO (09:32)
[2022-06-17] MEDS ORDERED: NITROFURANTN100 M2 PO (09:32)
[2022-06-17 09:51] VITALS: BP 102/73
== END 2022-06-17 10:00 | disposition home or self-care (01) ==
LOC: ED 08:56
PROVIDERS: Family Medicine
DX: N39.0 Urinary tract infection, site not specified (principal); K08.89 Other specified disorders of teeth and supporting structures; F41.9 Anxiety disorder, unspecified; F17.200 Nicotine dependence, unspecified, uncomplicated; B96.20 Unspecified Escherichia coli [E. coli] as the cause of diseases classified elsewhere

== ENCOUNTER 2022-10-18 09:28 | Emergency (ER) | payer OTHER ==
[~2022-10-18] VITALS: Ht 167.6 cm; Wt 83.0 kg
[2022-10-18] VITALS (23 sets, daily range): BP systolic 81–132; BP diastolic 48–87
[~2022-10-18 09:28] MED LIST changes: +AMOX/K CLAV875 M1 PO; +NITROFURANTN100 M2 PO
[2022-10-18] MEDS ORDERED: BACLOFEN20 MG PO (09:59)
[2022-10-18] MEDS ORDERED: OXYCODONE30 MG PO (09:59)
[2022-10-18] MEDS ORDERED: HYDROXYZ HCL25 MG PO (10:00)
[2022-10-18] MEDS ORDERED: PEPCID20 MG PO (10:01)
== END 2022-10-18 14:51 | disposition left against medical advice (07) ==
LOC: ED 09:28
DX: F41.9 Anxiety disorder, unspecified (principal); F17.210 Nicotine dependence, cigarettes, uncomplicated; Z53.29 Procedure and treatment not carried out because of patient's decision for other reasons

== ENCOUNTER 2022-10-31 00:28 | Emergency (ER) | payer OTHER ==
[~2022-10-31] VITALS: Ht 167.6 cm; Wt 81.0 kg
[~2022-10-31 00:28] MED LIST changes: +BACLOFEN20 MG PO; +OXYCODONE30 MG PO
[2022-10-31 01:27] LABS: URINE BILIRUBIN - DIPSTICK NEGATIVE (NEGATIVE); URINE BLOOD DIPSTICK NEGATIVE (NEGATIVE); URINE COLOR YELLOW; URINE GLUCOSE - DIPSTICK NEGATIVE (NEGATIVE); URINE KETONE NEGATIVE (NEGATIVE); URINE LEUK ESTERASE NEGATIVE (NEGATIVE); URINE PH 6.5 (4.5-8.0); URINE PROTEIN - DIPSTICK NEGATIVE (NEG-TRACE); URINE SPECIFIC GRAVITY 1.015; URINE UROBILINOGEN - DIPSTICK 0.2 E.U./dL (0.2)
[2022-10-31 01:31] LABS: URINE NITRITE - DIPSTICK NEGATIVE (Negative)
[2022-10-31] MEDS ORDERED: ZITHROMAX250 MG PO (02:47)
[2022-10-31] MEDS ORDERED: PREDNISONE20 MG PO (02:47)
[2022-10-31] MEDS ORDERED: VENTOLIN HFA IN (02:47)
[2022-10-31 02:51] VITALS: BP 120/71
== END 2022-10-31 02:59 | disposition home or self-care (01) ==
LOC: ED 00:28
PROVIDERS: Emergency Medicine
DX: J45.901 Unspecified asthma with (acute) exacerbation (principal); F41.9 Anxiety disorder, unspecified; F17.200 Nicotine dependence, unspecified, uncomplicated; Z20.822 Contact with and (suspected) exposure to COVID-19; G89.29 Other chronic pain

== ENCOUNTER 2022-12-10 23:56 | Emergency (ER) | payer OTHER ==
[~2022-12-10] VITALS: Ht 167.6 cm; Wt 85.0 kg
[~2022-12-10 23:56] MED LIST changes: +PREDNISONE20 MG PO; +VENTOLIN HFA IN
[2022-12-11 00:02] VITALS: BP 131/77
[2022-12-11 00:15] VITALS: BP 115/74
[2022-12-11 00:44] LABS: URINE BLOOD DIPSTICK NEGATIVE (NEGATIVE); URINE COLOR YELLOW; URINE GLUCOSE - DIPSTICK NEGATIVE (NEGATIVE); URINE KETONE NEGATIVE (NEGATIVE); URINE LEUK ESTERASE NEGATIVE (NEGATIVE); URINE PROTEIN - DIPSTICK NEGATIVE (NEG-TRACE); URINE SPECIFIC GRAVITY 1.025; URINE UROBILINOGEN - DIPSTICK 0.2 E.U./dL (0.2)
[2022-12-11 00:46] LABS: URINE NITRITE - DIPSTICK NEGATIVE (Negative)
[2022-12-11] MEDS ORDERED: AMOX/K CLAV875 M1 PO (01:01)
[2022-12-11 01:05] VITALS: BP 115/74
[2022-12-12 12:03] LABS: URINE BILIRUBIN - DIPSTICK NEGATIVE (NEGATIVE)
== END 2022-12-11 01:08 | disposition home or self-care (01) ==
LOC: ED 23:56
PROVIDERS: Emergency Medicine
DX: H66.91 Otitis media, unspecified, right ear (principal); G89.29 Other chronic pain; M54.9 Dorsalgia, unspecified; F41.9 Anxiety disorder, unspecified; F17.200 Nicotine dependence, unspecified, uncomplicated

== ENCOUNTER 2023-01-31 05:01 | Emergency (ER) | payer OTHER ==
[~2023-01-31] VITALS: Ht 167.6 cm; Wt 85.0 kg
[2023-01-31 05:22] VITALS: BP 128/85
[2023-01-31 05:31] VITALS: BP 108/74
[2023-01-31 05:50] LABS: URINE BLOOD DIPSTICK NEGATIVE (NEGATIVE); URINE COLOR ORANGE; URINE GLUCOSE - DIPSTICK 250 mg/dL (NEGATIVE); URINE KETONE TRACE mg/dL (NEGATIVE); URINE LEUK ESTERASE TRACE (NEGATIVE); URINE PROTEIN - DIPSTICK >=300 mg/dL (NEG-TRACE); URINE SPECIFIC GRAVITY 1.025; URINE UROBILINOGEN - DIPSTICK >=8.0 E.U./dL (0.2)
[2023-01-31 05:52] LABS: URINE BILIRUBIN - DIPSTICK NEGATIVE (NEGATIVE); URINE NITRITE - DIPSTICK POSITIVE (Negative)
[2023-01-31 05:53] LABS: URINE BACTERIA MODERATE hpf; URINE EPITHELIAL CELLS MODERATE EPI/hpf (0-FEW); URINE WBC >100 WBC/hpf (0-5)
[2023-01-31 06:01] VITALS: BP 90/61
[2023-01-31] MEDS ORDERED: CEPHALEXIN500 MG PO (06:02)
[2023-01-31] MEDS ORDERED: PYRIDIUM200 MG PO (06:02)
[2023-01-31] MEDS ORDERED: NAPROXEN250 MG PO (06:14)
[2023-01-31 06:56] VITALS: BP 90/61
== END 2023-01-31 06:56 | disposition home or self-care (01) ==
LOC: ED 05:01
PROVIDERS: Emergency Medicine
DX: N39.0 Urinary tract infection, site not specified (principal); B96.20 Unspecified Escherichia coli [E. coli] as the cause of diseases classified elsewhere; F41.9 Anxiety disorder, unspecified; F17.200 Nicotine dependence, unspecified, uncomplicated

== ENCOUNTER 2024-09-18 18:47 | Emergency (ER) | payer OTHER ==
[~2024-09-18] VITALS: Ht 167.6 cm; Wt 80.0 kg
[~2024-09-18 18:47] MED LIST changes: +METHOCARBAMOL500 MG PO; +NAPROXEN250 MG PO
[2024-09-18 19:15] LABS: URINE BILIRUBIN - DIPSTICK Negative (NEGATIVE); URINE BLOOD DIPSTICK Negative (NEGATIVE); URINE GLUCOSE - DIPSTICK Negative (NEGATIVE); URINE KETONE Negative (NEGATIVE); URINE NITRITE - DIPSTICK Negative (Negative); URINE PH 6.5 (4.5-8.0); URINE PROTEIN - DIPSTICK Negative (NEG-TRACE); URINE UROBILINOGEN - DIPSTICK 0.2 E.U./dL (0.2)
[2024-09-18 19:15] LABS: BASO% 0.4 % (0-3); EOS% 1.7 % (0-8); HEMOGLOBIN 14.2 g/dl (12.0-16.0); IMMATURE GRANULOCYTES 0.2 % (0.0-5.0); LYMPH% 28.7 % (15-41); MEAN CELL VOLUME 89.4 fL CALC (80.0-100.0); MEAN CORPUSCULAR HGB 28.9 pG CALC (26.0-32.0); MEAN CORPUSCULAR HGB CONC 32.3 g/dL CAL (32.0-36.0); MONO% 10.2 % (2-13); NEUT# 4.93 thou/uL (2.00-7.15); NEUT% 58.8 % (42-76); RED BLOOD COUNT 4.92 mill/uL (4.20-5.60); RED CELL DISTRI WIDTH 13.5 % (11.5-15.5)
[2024-09-18 19:18] LABS: URINE COLOR Yellow
[2024-09-18 19:22] LABS: URINE LEUK ESTERASE Small (NEGATIVE); URINE RBC 0-2 RBC/hpf (0-5)
[2024-09-18 19:23] LABS: URINE BACTERIA FEW hpf; URINE SQUAMOUS EPITHELIAL CELL FEW EPI/hpf (0-FEW)
[2024-09-18 19:37] LABS: BILIRUBIN, TOTAL 0.4 mg/dL (0.02-1.3); POTASSIUM 4.2 mmol/l (3.5-5.1); TOTAL PROTEIN 6.7 g/dL (6.3-8.2)
[2024-09-18] MEDS ORDERED: IBUPROFEN 800 MG/TAB PO ONE (20:15)
[2024-09-18] MEDS ORDERED: NITROFURANTOIN MONOHYDRATE/MAC (MACROBID) 100 MG/CAP PO ONE (20:15)
[2024-09-18] MEDS ORDERED: TORADOL PO (20:18)
[2024-09-18] MEDS ORDERED: NITROFURANTOIN100 M1 PO (20:18)
[2024-09-18 20:28] VITALS: BP 130/85
== END 2024-09-18 20:40 | disposition home or self-care (01) ==
LOC: ED 18:47
PROVIDERS: Nurse Practitioner
DX: N39.0 Urinary tract infection, site not specified (principal); N26.1 Atrophy of kidney (terminal); F17.210 Nicotine dependence, cigarettes, uncomplicated

== ENCOUNTER 2024-10-30 21:16 | Emergency (ER) | payer OTHER ==
[2024-10-30] VITALS (8 sets, daily range): BP systolic 110–146; BP diastolic 74–107
[~2024-10-30] VITALS: Ht 167.6 cm; Wt 76.0 kg
[~2024-10-30 21:16] MED LIST changes: +NITROFURANTOIN100 M1 PO
[2024-10-30] MEDS ORDERED: CIPROFLOXACIN HCL 500 MG/TAB PO ONE (21:40)
[2024-10-30] MEDS ORDERED: SULFAMETHOXAZOLE W/TRIMETHOPRI 1 COMBO TAB PO ONE (21:40)
[2024-10-30] MEDS ORDERED: KETOROLAC TROMETHAMINE 30 MG/ML SDV IV ONE (21:50)
[2024-10-30] MEDS ORDERED: SODIUM CHLORIDE 0.9% 1,000 ML IV ONE (21:50)
[2024-10-30 21:51] LABS: URINE BLOOD DIPSTICK Large (NEGATIVE); URINE GLUCOSE - DIPSTICK 100 mg/dL (NEGATIVE); URINE KETONE Trace mg/dL (NEGATIVE); URINE PH 5.5 (4.5-8.0); URINE PROTEIN - DIPSTICK >=300 mg/dL (NEG-TRACE)
[2024-10-30 21:52] LABS: URINE COLOR Brown; URINE LEUK ESTERASE Large (NEGATIVE); URINE NITRITE - DIPSTICK Positive (Negative)
[2024-10-30] MEDS ORDERED: ONDANSETRON HCl 4 MG/2 ML SDV IV ONE (21:55)
[2024-10-30 22:00] LABS: URINE BACTERIA MANY hpf; URINE MUCUS FEW hpf (NONE-FEW); URINE RBC 25-50 RBC/hpf (0-5); URINE WBC 50-100 WBC/hpf (0-5)
[2024-10-30 22:00] LABS: BASO% 0.2 % (0-3); EOS% 0.2 % (0-8); IMMATURE GRANULOCYTES 0.1 % (0.0-5.0); LYMPH% 9.1 % (15-41); MEAN CELL VOLUME 88.5 fL CALC (80.0-100.0); MEAN CORPUSCULAR HGB 28.8 pG CALC (26.0-32.0); MEAN CORPUSCULAR HGB CONC 32.6 g/dL CAL (32.0-36.0); MONO% 6.4 % (2-13); NEUT# 13.59 thou/uL (2.00-7.15); RED BLOOD COUNT 5.2 mill/uL (4.20-5.60); RED CELL DISTRI WIDTH 13.3 % (11.5-15.5)
[2024-10-30 22:16] LABS: ALBUMIN 4.8 g/dL (3.2-5.0); POTASSIUM 4.1 mmol/l (3.5-5.1); TOTAL PROTEIN 7.8 g/dL (6.3-8.2)
[2024-10-30 22:18] LABS: BILIRUBIN, TOTAL 0.7 mg/dL (0.02-1.3)
[2024-10-31] VITALS: BP 124/85
[2024-10-31 00:15] VITALS: BP 119/78
[2024-10-31 00:30] VITALS: BP 108/72
[2024-10-31 00:45] VITALS: BP 121/83
[2024-10-31] MEDS ORDERED: CIPROFLOXACN500 MG PO (00:48)
[2024-10-31] MEDS ORDERED: BACTRIM DS1 TAB PO (00:48)
[2024-10-31 00:56] VITALS: BP 121/83
[2024-11-01] MEDS ORDERED: CIPROFLOXACN500 MG PO (10:48)
== END 2024-10-31 01:00 | disposition home or self-care (01) ==
LOC: ED 21:16
PROVIDERS: Family Medicine
DX: N11.1 Chronic obstructive pyelonephritis (principal); B96.20 Unspecified Escherichia coli [E. coli] as the cause of diseases classified elsewhere; F17.200 Nicotine dependence, unspecified, uncomplicated
CPT/HCPCS: J2405